=== PATIENT | male | born 1965 | race Caucasian/White ===

== ENCOUNTER 2018-10-05 16:29 | Emergency (ER) | payer OTHER, SELFPAY ==
[2018-10-05 16:29] VITALS: BP 150/82; PULSE 90; RESP 16; TEMP 37.2; O2SAT 98; BMI 35.3
--- NOTE | 2018-10-05 16:49 | RAD_ITS ---
STUDY: X-RAY - LEFT SHOULDER REASON FOR EXAM: Male, 53 years old. Pain TECHNIQUE: 2 view(s) of the shoulder. COMPARISON: 12/12/2016 FINDINGS: There is no evidence of fracture or dislocation. There are stable mild degenerative changes. There are no radiodense foreign bodies. RAD/Shoulder min 2 Views IMPRESSION: No fracture or dislocation in the left shoulder. Stable mild degenerative change. Electronically Signed: Adalberto Galaviz, at 17:14 EDT Tel , Service support ,
--- NOTE | 2018-10-05 16:53 | ED.VISSUMM ---
- ER Visit Summary Date of Service: 10/05/18 Chief Complaint: Left shoulder pain History of Present Illness: The patient is a 53 M. Prior right rotator cuff surgery. Patient had some downed trees at his home. He was working on cleaning that up today when he pulled on some of the branches and he had immediate left shoulder pain. Denies any fall. No prior left shoulder history. Denies any fever, swelling or redness. Physical Examination: Middle-aged male. Vital signs stable afebrile. No acute distress. H EENT exam unremarkable. Neck nontender. Lungs clear to auscultation. Heart regular rhythm no murmur. Abdomen soft and nontender. Obese. Patient's right upper and both lower extremities are nontender normal range of motion. Left shoulder has pain on palpation diffusely of the shoulder. Also the posterior trapezius. He has full flexion-extension left elbow and range of motion of the left wrist. Normal radial pulse. Normal 5 out of 5 vp of customer experience strategy strength. There is no gross bony deformity but he is tender to the left shoulder and he has significant decreased range of motion due to pain. He cannot lift his left arm above his shoulder but again he does not want to due to pain. Neurologically is awake and alert. Normal motor strength and sensation. Test Results: Left shoulder x-ray 2 views show chronic degenerative changes but no acute process. No fracture or dislocation. Read both by myself and radiologist. I did go the x-ray to the patient. Emergency Department Course and Treatment: Patient's history and exam are consistent with a shoulder strain. IT is a limited shoulder exam due to the amount of pain exam and cannot evaluate full range of motion at this time due to his pain. Given 2 Vicodin here for pain. Treatment Plan: [place] for pain. Ice. Follow-up with his orthopedic physician Dr. Jacinto Roman if not improving. Patient understands that due to his limited range of motion this is not improving he will need orthopedic evaluation. Disposition: Discharge Impression: Acute left shoulder strain Rule out internal derangement This note was generated with Morphy dictation software. It may contain incorrect words, spelling, and punctuation that were not noted in review of the chart prior to signing ED Disposition - Plan for ED Patient: Disposition: Home or Assisted Living Instructions: ED Sprain Shoulder Prescriptions: Hydrocodone/Acetaminophen [[place] 7.5-325 Tablet] 1 ea PO Q4H PRN PRN #14 tab PRN Reason: Pain Referrals: Adalberto Roman MD [STAFF PHYSICIAN] - As soon as possible Additional Instructions: Shoulder. Motrin and limited [place] for pain. This could be just a simple shoulder strain we injured the muscles. However the amount of pain urine and due to your limited range of motion if this is not improving you need to have it seen by orthopedics to rule out a rotator cuff injury or other internal injury is not evident today.
--- NOTE | 2018-10-05 16:56 | ED.DCSUM_ITS ---
- ER Visit Summary Date of Service: 10/05/18 Chief Complaint: Left shoulder pain History of Present Illness: The patient is a 53 M. Prior right rotator cuff surgery. Patient had some downed trees at his home. He was working on cleaning that up today when he pulled on some of the branches and he had immediate left shoulder pain. Denies any fall. No prior left shoulder history. Denies any fever, swelling or redness. Physical Examination: Middle-aged male. Vital signs stable afebrile. No acute distress. H EENT exam unremarkable. Neck nontender. Lungs clear to auscultation. Heart regular rhythm no murmur. Abdomen soft and nontender. Obese. Patient's right upper and both lower extremities are nontender normal range of motion. Left shoulder has pain on palpation diffusely of the shoulder. Also the posterior trapezius. He has full flexion-extension left elbow and range of motion of the left wrist. Normal radial pulse. Normal 5 out of 5 box nailer strength. There is no gross bony deformity but he is tender to the left shoulder and he has significant decreased range of motion due to pain. He cannot lift his left arm above his shoulder but again he does not want to due to pain. Neurologically is awake and alert. Normal motor strength and sensation. Test Results: Left shoulder x-ray 2 views show chronic degenerative changes but no acute process. No fracture or dislocation. Read both by myself and radiologist. I did go the x-ray to the patient. Emergency Department Course and Treatment: Patient's history and exam are consistent with a shoulder strain. IT is a limited shoulder exam due to the amount of pain exam and cannot evaluate full range of motion at this time due to his pain. Given 2 Vicodin here for pain. Treatment Plan: [place] for pain. Ice. Follow-up with his orthopedic physician Dr. Jacinto Roman if not improving. Patient understands that due to his limited range of motion this is not improving he will need orthopedic evaluation. Disposition: Discharge Impression: Acute left shoulder strain Rule out internal derangement This note was generated with [employer] dictation software. It may contain incorrect words, spelling, and punctuation that were not noted in review of the chart prior to signing ED Disposition - Plan for ED Patient: Disposition: Home or Assisted Living Instructions: ED Sprain Shoulder Prescriptions: Hydrocodone/Acetaminophen [[place] 7.5-325 Tablet] 1 ea PO Q4H PRN PRN #14 tab PRN Reason: Pain Referrals: Adalberto Roman MD [STAFF PHYSICIAN] - As soon as possible Additional Instructions: Shoulder. Motrin and limited [place] for pain. This could be just a simple shoulder strain we injured the muscles. However the amount of pain urine and due to your limited range of motion if this is not improving you need to have it seen by orthopedics to rule out a rotator cuff injury or other internal injury is not evident today.
--- NOTE | 2018-10-05 17:04 | DCINST.ED_ITS ---
ED Disposition - Plan for ED Patient: Disposition: Home or Assisted Living Instructions: ED Sprain Shoulder Prescriptions: Hydrocodone/Acetaminophen [[place] 7.5-325 Tablet] 1 ea PO Q4H PRN PRN #14 tab PRN Reason: Pain Referrals: Adalberto Roman MD [STAFF PHYSICIAN] - As soon as possible Additional Instructions: Shoulder. Motrin and limited [place] for pain. This could be just a simple shoulder strain we injured the muscles. However the amount of pain urine and due to your limited range of motion if this is not improving you need to have it seen by orthopedics to rule out a rotator cuff injury or other internal injury is not evident today.
[2018-10-05] MEDS: HYDROcodone Bitartrate/Apap 5/325 Tablet PO (17:07)
[2018-10-05 17:33] VITALS: PULSE 87; RESP 17; O2SAT 97
== END 2018-10-05 17:33 | disposition home or self-care (01) ==
LOC: ED 17:11
PROVIDERS: Emergency Provider Emergency Medicine; Family Provider Internal Medicine; PCP Internal Medicine
DX: S46.812A Strain of other muscles, fascia and tendons at shoulder and upper arm level, left arm, initial encounter (principal); Z72.0 Tobacco use; X50.0XXA Overexertion from strenuous movement or load, initial encounter; Y93.89 Activity, other specified; Y92.007 Garden or yard of unspecified non-institutional (private) residence as the place of occurrence of the external cause; Y99.8 Other external cause status
CPT/HCPCS: 73030; 99283

== ENCOUNTER 2018-10-10 13:39 | Emergency (ER) | payer OTHER, SELFPAY ==
[2018-10-09 17:04] VITALS: BMI 35.3
[2018-10-10 13:40] VITALS: BP 156/109; PULSE 73; RESP 18; TEMP 36.6; O2SAT 98; BMI 36.9
--- NOTE | 2018-10-10 14:22 | ED.DCSUM_ITS ---
- ER Visit Summary Date of Service: 10/10/18 Chief Complaint: Shoulder pain History of Present Illness: The patient is a 53 M patient presents with left shoulder pain. Patient has had the pain for 5 days. It started when he was cutting trees. He felt a pop in the left shoulder. He was seen in the ED. He had negative x-rays and was referred to orthopedics for outpatient follow-up. He has an appointment on October 16. Patient is out of pain medicine. His pain is unbearable. He cannot move his arm or function. Denies any other symptoms like fever or systemic symptoms. Denies chest pain or shortness of breath. Denies weakness or numbness. Physical Examination: Afebrile and vital signs unremarkable. Left shoulder diffusely tender to palpation. Pain with range of motion. No redness or warmth. Neurovascularly intact distally. Test Results: None performed Emergency Department Course and Treatment: I am concerned for rotator cuff injury or other soft tissue injury. X-rays were negative. I did not feel it was necessary to repeat them. Patient received pain medicine here, Dilaudid subcutaneous. Prescription for Percocet. Work note. Follow-up with orthopedics. Treatment Plan: As above Disposition: Discharge Impression: 1. Left shoulder pain This note was generated with [employer] dictation software. It may contain incorrect words, spelling, and punctuation that were not noted in review of the chart prior to signing ED Disposition - Plan for ED Patient: Referrals: Josh Leach MD [Primary Care Provider] -
--- NOTE | 2018-10-10 14:24 | ED.DEP ---
ED Disposition - Plan for ED Patient: Instructions: Shoulder Sprain, Rotator Cuff Tear Prescriptions: Oxycodone HCl/Acetaminophen [Percocet 5/325] 1 tab PO Q6H PRN PRN 3 Days #12 tab PRN Reason: Pain Prescription Printed Referrals: Adalberto Roman MD [STAFF PHYSICIAN] -
[2018-10-10] MEDS: HYDROmorphone 1 MG/ML Syringe SC (14:35)
[2018-10-10 15:05] VITALS: BP 139/84; PULSE 76; RESP 18; O2SAT 97
--- NOTE | 2018-10-10 15:07 | ED.RN ---
THIS NURSE REVIEWED D/C INSTRUCTIONS WITH PT. PT VERBALIZED UNDERSTANDING OF INSTRUCTIONS. PT DENIES FURTHER NEEDS OR QUESTIONS AT THIS TIME. PT AMBULATES FROM ROOM ON OWN WITHOUT ASSISTANCE FROM STAFF
== END 2018-10-10 15:08 | disposition home or self-care (01) ==
LOC: ED 14:23
PROVIDERS: Emergency Provider Emergency Medicine; Family Provider Internal Medicine; PCP Internal Medicine
DX: M25.512 Pain in left shoulder (principal)
CPT/HCPCS: 96372; 99282

== ENCOUNTER → 2018-11-27 08:08 | Outpatient (CLI) | payer OTHER, SELFPAY ==
[2018-10-30 17:10] VITALS: BMI 37.8
[2018-11-27 12:22] LABS: Absolute Lymphocyte Count 2.54 X10^3/uL (0.83-4.51); Absolute Neutrophil Count 6.5 X10^3/uL (2.0-7.7); Basophil# 0.06 X10^3/uL; Basophil% 0.6 % (0-1); Eosinophil# 0.25 X10^3/uL; Eosinophils% 2.5 % (0-5); Hematocrit 47.7 % (40-54); Hemoglobin 15.4 g/dL (13.0-16.5); Lymphocyte # 2.54 X10^3/ul (4.0); Lymphocyte % 25.2 % (19-41); Mean Corp Hgb Conc 32.3 g/dL (32-36); Mean Corpuscular Hgb 32.7 pg (27.0-32.0); Mean Corpuscular Volume 101.3 fL (80-94); Mean Platelet Vol. 9.6 fl (6.2-12.0); Monocyte# 0.75 X10^3/uL; Monocyte% 7.4 % (0-10); NRBC Flagged by Analyzer 0 % (0-5); Neutrophil # 6.46 X10^3/uL (2.7-7.7); Neutrophil % 64.1 % (47-70); Platelet Count 262 K/mm3 (150-450); RBC Distribution Width SD 48.4 fl (35.1-43.9); Red Blood Count 4.71 M/mm3 (4.6-6.2); White Blood Count 10.1 K/mm3 (4.4-11.0)
[2018-11-27 12:53] LABS: ALB/GLOB Ratio 0.9 RATIO (0.9-2.4); AST(SGOT) 17 U/L (15-37); Alanine Aminotransfer ALT/SGPT 27 U/L (16-61); Albumin, Serum 3.7 g/dL (3.2-5.0); Alkaline Phosphatase 80 U/L (45-117); Anion Gap 5 (5-15); BUN 19 mg/dL (7-18); Chloride 107 mmol/L (98-107); Cholesterol 230 mg/dL (200); Creatinine, Serum 1.12 mg/dL (0.70-1.30); EST Glomerular Filtration Rate 72 mL/min (>60); Est Glom Filt Rate - Afr Amer 87 mL/min (>60); Globulin 3.9 g/dL (2.2-4.2); Glucose 109 mg/dL (74-106); High Density Lipoprotein 41 mg/dL; Potassium 4.5 mmol/L (3.5-5.1); Protein, Total 7.6 g/dL (6.4-8.2); Sodium Level 139 mmol/L (136-145); Triglycerides 114 mg/dL; Very Low Density Lipoprotein 23 mg/dL (5-40)
== END ==
PROVIDERS: Family Provider Internal Medicine; PCP Family Medicine; Visit Provider Internal Medicine
DX: I10 Essential (primary) hypertension (principal)
CPT/HCPCS: 36415; 80053; 80061; 85025

== ENCOUNTER → 2019-01-16 | Outpatient (CLI) | payer OTHER, SELFPAY ==
[2018-10-30 17:10] VITALS: BMI 37.8
--- NOTE | 2019-01-16 14:32 | RAD_ITS ---
STUDY: X-RAY CHEST REASON FOR EXAM: Male, 53 years old. Pre-op for hip surgery TECHNIQUE: PA and lateral views of the chest. COMPARISON: None. FINDINGS: Lungs are expanded. Left lung is clear. There is blunting of the right costophrenic angle suggesting right pleural effusion. Normal size heart. Normal mediastinum and lizandro. Normal visualized pulmonary arteries. Normal visualized aortic arch and descending thoracic aorta. Normal visualized thoracic spine. Normal visualized ribs, clavicles, and shoulders. There is no demonstrated abnormality of the visualized soft tissue structures of the upper abdomen. RAD/Chest PA and Lateral IMPRESSION: Right pleural effusion, no superimposed infiltrate. Electronically Signed: Maykel Newman MD at 15:18 EDT , Service support ,
--- NOTE | 2019-01-16 14:33 | EKG12_ITS ---
Test Reason : PRE OP Blood Pressure : / mmHG Vent. Rate : 068 BPM Atrial Rate : 068 BPM P-R Int : 210 ms QRS Dur : 090 ms QT Int : 370 ms P-R-T Axes : 046 014 038 degrees QTc Int : 393 ms Sinus rhythm with sinus arrhythmia with 1st degree A-V block Otherwise normal ECG Confirmed by ASH ARRIAZA, SERGIO ([id number]), non linear editor JANKI SANTIAGO ([id number]) on 01/19/2019 3:17:40 PM Referred By: Wilmer Nina Confirmed By:SERGIO ALEMAN MD
[2019-01-16 15:23] LABS: Hematocrit 46.2 % (40-54); Mean Corp Hgb Conc 32.5 g/dL (32-36); Mean Corpuscular Volume 98.5 fL (80-94); Mean Platelet Vol. 9.4 fl (6.2-12.0); Platelet Count 248 K/mm3 (150-450); RBC Distribution Width CV 12.6 % (11.6-14.6); RBC Distribution Width SD 45.2 fl (35.1-43.9); Red Blood Count 4.69 M/mm3 (4.6-6.2); White Blood Count 8.2 K/mm3 (4.4-11.0)
[2019-01-16 15:55] LABS: Anion Gap 5 (5-15); BUN 15 mg/dL (7-18); BUN/Creat Ratio 12.3 RATIO (10-20); Calcium,Total 9.4 mg/dL (8.5-10.1); Chloride 105 mmol/L (98-107); Creatinine, Serum 1.22 mg/dL (0.70-1.30); EST Glomerular Filtration Rate 65 mL/min (>60); Est Glom Filt Rate - Afr Amer 79 mL/min (>60); Glucose 103 mg/dL (74-106); Potassium 3.8 mmol/L (3.5-5.1); Sodium Level 140 mmol/L (136-145)
== END | disposition home or self-care (01) ==
PROVIDERS: Family Provider Internal Medicine; PCP Internal Medicine; Referring Provider Physician Assistant; Visit Provider Physician Assistant
DX: Z01.818 Encounter for other preprocedural examination (principal); F17.200 Nicotine dependence, unspecified, uncomplicated
CPT/HCPCS: 36415; 71046; 80048; 85027; 93005

== ENCOUNTER → 2019-03-03 | Outpatient (CLI) | payer OTHER, SELFPAY ==
[2019-02-10 14:54] VITALS: BMI 38.7
[2019-03-03 13:24] VITALS: BMI 38.7
--- NOTE | 2019-03-03 14:00 | CT_ITS ---
STUDY: LOW DOSE CT LUNG CANCER SCREENING REASON FOR EXAM: Male, 53 years old. The patient smoked half a pack per day for 45+ years. RADIATION DOSAGE (If Supplied By Facility): CTDIvol = ( 4.02 ) mGy, DLP = ( 149.49 ) mGycm TECHNIQUE: No contrast was administered. Low dose technique was utilized (average mAS-38 and kVp 120). 1.25 mm axial source images with a slice interval of 1.25-mm were reconstructed in lung windows. 2.5 mm axial source images with a slice interval of 2.5-mm were reconstructed in lung windows. 5.0 mm axial source images with a slice interval of 5.0-mm were reconstructed in soft tissue windows. Nodule measured using lung windows on PACS and/or independent workstation with automated measurement of minimum and maximum diameter. Nodule measurement reported as average diameter rounded to the nearest whole number. Growth is defined as an increase ins size of greater than 1.5 mm. COMPARISON: None. NODULES: No suspicious nodules are seen. Emphysema: Mild linear scarring in the anterior aspect of the right lower lobe. Aorta: Atherosclerotic calcification of the aortic arch. Coronary arteries: Coronary artery calcification. Heart: Unremarkable Pulmonary artery: Not enlarged Mediastinal nodes: Tiny lymph nodes are seen. Other chest and abdominal findings: Mild degenerative changes of the thoracic vertebrae. CT/Low Dose CT Lung Screening IMPRESSION: Lung-RADS category 2 - Continue annual screening with LDCT in 12 months. IMPORTANT NOTES FOR USE: ACR Lung-RADS Version 1.0 Assessment Categories Release Date: August 17, 2013 Category: Coded 0-4 bases on nodule(s) with highest degree of suspicion. Negative screen is defined as categories 1 and 2; a positive screen is defined as categories 3 and 4. Category 3 and 4A nodules that are unchanged on interval CT should be coded as category 2, and individuals returned to screening in 12 months. Category 4X: Category 3 or 4 nodules with additional imaging findings that increase the suspicion of lung cancer, such as spiculation, GGN that doubles in size in 1 year, enlarged lymph notes, etc. Category Modifiers: S (significant finding unrelated to lung cancer) and C (prior history of treated lung cancer) may be added to the 0-4 Lung-RADS Electronically Signed: Jaiden Fall, at 14:58 EST , Service support ,
== END | disposition home or self-care (01) ==
LOC: CT 13:59
PROVIDERS: Family Provider Internal Medicine; PCP Internal Medicine; Referring Provider Nurse Practitioner Family; Visit Provider Nurse Practitioner Family
DX: Z12.2 Encounter for screening for malignant neoplasm of respiratory organs (principal); F17.209 Nicotine dependence, unspecified, with unspecified nicotine-induced disorders
CPT/HCPCS: G0297

== ENCOUNTER 2019-03-13 07:40 | Day surgery (SDC) | payer OTHER, SELFPAY ==
[2019-02-10 14:54] VITALS: BMI 38.7
[2019-03-03 13:24] VITALS: BMI 38.7
[2019-03-13 08:17] VITALS: BP 131/84; PULSE 70; RESP 16; TEMP 36.7; O2SAT 100; BMI 38.7
[2019-03-13] MEDS: Lactated Ringers 1,000 ML 100 ML IV (08:30)
--- NOTE | 2019-03-13 09:06 | H&P.OPEN ---
History of Present Illness Date of Admission: 03/13/19 The patient is a 54 year old M here for screening colonoscopy. The patient reports he has no blood in the stool or abdominal pain. Patient does not know his family history. He is never had a colonoscopy in the past. He is not on blood thinners. Past Medical/Surgical History - Planned Operation Planned Operative Procedure/s: colonoscopy Date of Operative Procedure: 03/13/19 Permit Signed: No S.O.S: No Is This Patient Having a Total Joint: No - Previous Hospitalizations/Surgeries HX Hospitalizations: No HX of Surgeries: shoulder arthroscopy 2008 rt. left shoulder rotator cuff repair/ arthroscopy 01/23/19[facility]. rt knee meniscius repair 2017. umbilical hernia repair Any Problems With Anesthesia: No You/Your Family Experience Fever (Hyperthermia) With Anes: No - family hx unknown. no prev problems Cholinesterase deficiency: No - Cardiovascular Hx Chest Pain within Last 2 months: No Hx of Irregular Heartbeat and/or Afib: No Hx Heart Attack: No Hx Congestive Heart Failure: No Hx Rheumatic Fever: No Hx Hypertension: No Hx Internal Defibrillator: No Hx Pacemaker: No Hx Cardiac Catheterization: No Hx Cardiac Surgery/Stents/Etc.: No Hx Stress Test: No HX Edema: No Hx Pain in Legs when Walking/Leg Cramps: No - Respiratory Chronic Cough: No HX of Shortness of Breath: No - denies Hoarseness: No Hx Chronic Obstructive Pulmonary Disease (COPD): No Hx Asthma: No Hx Emphysema: No Hx Sleep Apnea: No Hx Oxygen Use at Home: No Hx Respiratory Tract Infection/Cold (presently): No Do You Snore Loudly (louder than talking or can be heard): Yes Do You Often Feel Tired/ Fatigued/ Sleepy [place]ring Daytime?: No Has Anyone Observed You Stop Breathing During Sleep?: No Result (for STOP score): Negative Hx Smoking: Yes - 1/2 PPD x 27 yrs Smoking Status: Current every day smoker - Gastrointestinal Hx Gastroesophageal Reflux: No Hx Gastrointestinal Disorders: No Hx Gastrointestinal Bleed: No Hx Ulcer: No Hx Hiatal Hernia: No Difficulty Chewing/Swallowing: No Recent Onset of Swallowing Problems: No Special diet followed at home: No Hx Unplanned Weight Loss of 20#: No HX Unplanned Weight Gain of 20#: No - Neurological Hx Seizures: No HX Syncope/Blackout Spells/Unconsciousness: No Hx CVA/Stroke: No Hx Transient Ischemic Attacks (TIA): No Hx Multiple Sclerosis: No Hx Parkinson's Disease: No Hx Head/Neck Injury: No Hx Headaches: No Hx Back Injury/Pain: No Recent Onset of Speech Difficulty: No Restless Legs: No Does patient have nerve stimulator: No Patient instructed to have device shut off: No Rep notified?: No - Blood Disorder Hx Leukemia: No Bleeding Tendencies: No Hx Deep Vein Thrombosis: No Hx High Cholesterol: No Blood Transmitted Disease: No Hx Hepatitis: No Hx Cirrhosis: No Hx Anemia: No Hx Blood Disorders: No - Genitourinary Hx Renal Disease: No - Musculoskeletal Hx Arthritis: Yes Hx Rheumatoid Arthritis: No Hx Gout: No Recent Onset of an Orthopedic Problem: Yes - 01/2019 left shoulder surgery - Endocrine Hx Diabetes: No Thyroid Disease: No Hx Steroid Therapy: No - Psycho/Social Hx Substance Use: No Hx Alcohol Use: No Hx Anxiety: No Hx Depression: No Mental Illness: No Hx Dementia: No - Miscellaneous Hx Cancer: No Recent Exposure to Contagious Disease: No Active MRSA: No Hx of C-Diff: No Any Loose Teeth: No Additional information pertinent to anesthesia:: phone interview with , pt permission Allergies No Known Allergies Allergy (Verified 03/13/19 08:13) - Discharge Is Pt Admitted From a Snf, or a Intermediate: No Who Could Help: After D/C, Where Do you Plan to Go: Return Home - Physical Exam Vitals/I&O's: Vital Signs Temp Pulse Resp BP Pulse Ox 98.1 F 70 16 131/84 H 100 03/13/19 08:17 03/13/19 08:17 03/13/19 08:17 03/13/19 08:17 03/13/19 08:17 Oxygen Delivery Method Room Air Weight: 302 lb 4.06 oz Body Mass Index (BMI) 38.7 General: Alert, Oriented x3 Lungs: Normal air movement Cardiovascular: Regular rate, Regular Rhythm Abdomen: Soft, Non Tender, Non-Distended Current Medications Lactated Ringer's () 1,000 mls @ 100 mls/hr IV .Q10H K[place]ER[place] Last Admin: 03/13/19 08:30 Dose: 100 mls/hr Documented by: Assessment/Plan All Active Problems (Last Updated 03/03/19 @ 13:20 by Jennifer Felder Left shoulder pain (Acute) Left shoulder strain (Acute) 54-year-old male screening colon cancer I explained endoscopy in detail to the patient. I explained the risks including but not limited to stroke or heart attack with anesthesia, perforation of the GI tract, bleeding, infection. I explained that any of these could necessitate further emergency surgery. The patient understands and all questions were answered sufficiently. The patient wishes to proceed with procedure. Mark Carroll MD Pager: [facility] [address] [place] [address] [address] [place] [address] Office: Surgery Risks - Colonoscopy Risks Include but are not Limited To: Risks include but are not limited to: Bleeding, perforation requiring further surgery, inability to complete colonoscopy requiring barium enema.
--- NOTE | 2019-03-13 09:31 | OP.COLON_ITS ---
Patient Name: Wilver Smith Procedure Date: 03/13/2019 9:15 AM Date of : 1965 Age: 54 Procedure: Colonoscopy Indications: Screening for colorectal malignant neoplasm Providers: Mark Carroll MD Referring MD: Josh Leach MD Medicines: Monitored Anesthesia Care Patient Profile: This is a 54 year old male. Refer to note in patient chart for documentation of history and physical. Last Colonoscopy: none. The patient's first colonoscopy is today. Complications: No immediate complications. Procedure: Pre-Anesthesia Assessment: - Prior to the procedure, a History and Physical was performed, and patient medications and allergies were reviewed. The patient's tolerance of previous anesthesia was also reviewed. The risks and benefits of the procedure and the sedation options and risks were discussed with the patient. All questions were answered, and informed consent was obtained. Prior Anticoagulants: The patient has taken no previous anticoagulant or antiplatelet agents. After reviewing the risks and benefits, the patient was deemed in satisfactory condition to undergo the procedure. After I obtained informed consent, the scope was passed under direct vision. Throughout the procedure, the patient's blood pressure, pulse, and oxygen saturations were monitored continuously. The colonoscope was introduced through the anus and advanced to the cecum, identified by appendiceal orifice and ileocecal valve. The colonoscopy was performed without difficulty. The patient tolerated the procedure well. The quality of the bowel preparation was good. Scope In: 9:18:17 AM Scope Withdrawal Time 0 hours 6 minutes 33 seconds Scope Out: 9:27:44 AM Total Procedure Duration Time 0 hours 9 minutes 27 seconds Findings: The entire examined colon appeared normal on direct and retroflexion views. Impression: - The entire examined colon is normal on direct and retroflexion views. - No specimens collected. Recommendation: - Discharge patient to home. - Resume previous diet. - Continue present medications. - Repeat colonoscopy in 10 years for screening purposes. Procedure Code(s): --- Professional --- 29182, Colonoscopy, flexible; diagnostic, including collection of specimen(s) by brushing or washing, when performed (separate procedure) Diagnosis Code(s): --- Professional --- Z12.11, Encounter for screening for malignant neoplasm of colon CPT copyright 2017 [employer]. All rights reserved. The codes documented in this report are preliminary and upon handle lathe operator review may be revised to meet current compliance requirements. Mark Carroll MD 03/13/2019 9:31:15 AM This report has been signed electronically. Number of Addenda: 0 Note Initiated On: 03/13/2019 9:15 AM
[2019-03-13 09:35] VITALS: BP 115/57; BP 131/84; PULSE 95; RESP 16; TEMP 36.8; O2SAT 100
[2019-03-13 09:40] VITALS: BP 116/81; BP 131/84; PULSE 80; RESP 16; O2SAT 100
[2019-03-13 09:44] VITALS: BP 112/86; BP 131/84; PULSE 73; RESP 16; O2SAT 99
[2019-03-13 09:45] VITALS: BP 108/91; BP 131/84; PULSE 88; RESP 16; TEMP 36.6; O2SAT 100
[2019-03-13 10:16] VITALS: BP 131/84
== END 2019-03-13 10:17 | disposition home or self-care (01) ==
LOC: EN 07:40 → AC 07:42
PROVIDERS: Family Provider Internal Medicine; PCP Internal Medicine; Referring Provider Internal Medicine; Visit Provider Surgery
PROC: 0DJD8ZZ Inspection of Lower Intestinal Tract, Via Natural or Artificial Opening Endoscopic (ICD-10-PCS; CPT 45378; principal; 2019-03-13 08:55)
DX: Z12.11 Encounter for screening for malignant neoplasm of colon (principal); M19.90 Unspecified osteoarthritis, unspecified site; F17.200 Nicotine dependence, unspecified, uncomplicated
CPT/HCPCS: 45378; J7120; J2405

== ENCOUNTER → 2019-09-15 15:00 | Outpatient (CLI) | payer OTHER, SELFPAY ==
[2019-09-15 16:38] VITALS: BMI 38.7
[2019-09-15 18:53] LABS: Absolute Lymphocyte Count 1.83 X10^3/uL (0.83-4.51); Absolute Neutrophil Count 4.7 X10^3/uL (2.0-7.7); Basophil# 0.04 X10^3/uL; Basophil% 0.5 % (0-1); Eosinophils% 2.7 % (0-5); Hematocrit 46.6 % (40-54); Hemoglobin 14.9 g/dL (13.0-16.5); Lymphocyte # 1.83 X10^3/ul (4.0); Lymphocyte % 24.4 % (19-41); Mean Corpuscular Volume 100.2 fL (80-94); Mean Platelet Vol. 9.5 fl (6.2-12.0); Monocyte# 0.69 X10^3/uL; Monocyte% 9.2 % (0-10); NRBC Flagged by Analyzer 0 % (0-5); Neutrophil # 4.73 X10^3/uL (2.7-7.7); Neutrophil % 62.9 % (47-70); Platelet Count 293 K/mm3 (150-450); RBC Distribution Width SD 47.8 fl (35.1-43.9); Red Blood Count 4.65 M/mm3 (4.6-6.2); White Blood Count 7.5 K/mm3 (4.4-11.0)
[2019-09-16 10:49] LABS: ALB/GLOB Ratio 0.9 RATIO (0.9-2.4); AST(SGOT) 25 U/L (15-37); Alanine Aminotransfer ALT/SGPT 35 U/L (16-61); Albumin, Serum 3.8 g/dL (3.2-5.0); Alkaline Phosphatase 83 U/L (45-117); Anion Gap 5 (5-15); BUN 16 mg/dL (7-18); BUN/Creat Ratio 13.6 RATIO (10-20); Calcium,Total 9.5 mg/dL (8.5-10.1); Chloride 107 mmol/L (98-107); Cholesterol 240 mg/dL (200); Creatinine, Serum 1.18 mg/dL (0.70-1.30); EST Glomerular Filtration Rate 68 mL/min (>60); Est Glom Filt Rate - Afr Amer 82 mL/min (>60); Globulin 4.1 g/dL (2.2-4.2); Glucose 94 mg/dL (74-106); High Density Lipoprotein 37 mg/dL; Potassium 4.2 mmol/L (3.5-5.1); Protein, Total 7.9 g/dL (6.4-8.2); Sodium Level 139 mmol/L (136-145); Triglycerides 227 mg/dL; Very Low Density Lipoprotein 45 mg/dL (5-40)
--- OUTSIDE RECORDS SUMMARY | 2020-02-02 17:33 | XMS RPT_ITS | CCD ---
:1965 External Reference #:[id number] Author Organization [facility] Care Team Providers Name Role Phone ALBERTO, A. Unavailable Unavailable WAYT Unavailable Unavailable ALBERTO, A. Unavailable Unavailable WAYT Unavailable Unavailable Lyren-Barney, E Unavailable Unavailable PHYSICIAN Unavailable Unavailable Results Result Name Value Range Unit Interpretation Flag Date Location ua on 2017-08-08 UA Appear CLEAR Normal 08-08-2017 [facility]) ([id number]) Comment: Performed By: #### CBC, ADIF F, ANEU, GFR, CMP ####[address] [place], [place] [address] UA Blood NEGATIVE Normal 08-08-2017 [facility]) ([id number]) Comment: Performed By: #### CBC, ADIF F, ANEU, GFR, CMP ####[address] [place], [place] [address] UA Leuk Est NEGATIVE Normal 08-08-2017 [facility]) ([id number]) Comment: Performed By: #### CBC, ADIF F, ANEU, GFR, CMP ####[address] [place], [place] [address] UA Nitrite NEGATIVE Normal 08-08-2017 [facility] ([place] ([id number]) Comment: Performed By: #### CBC, ADIF F, ANEU, GFR, CMP ####[address] [place], [place] [address] UA pH 6.0 Normal 08-08-2017 [facility] ([place]) ([id number]) Comment: Performed By: #### CBC, ADIF F, ANEU, GFR, CMP ####[address] [place], [place] [address] UA Protein NEGATIVE Normal 08-08-2017 [facility]) ([id number]) Comment: Performed By: #### CBC, ADIF F, ANEU, GFR, CMP ####[address] [place], [place] [address] UA Spec Grav 1.025 Normal 08-08-2017 [facility]) ([id number]) Comment: Performed By: #### CBC, ADIF F, ANEU, GFR, CMP ####[address] [place], [place] [address] UA Specimen Type Clean Catch Normal 08-08-2017 [facility] ([place]) ([id number]) Comment: Performed By: #### CBC, ADIF F, ANEU, GFR, CMP ####[address] [place], [place] [address] UA Urobilinogen 0.2 E.U./dL Normal 08-08-2017 [facility]) ([id number]) Comment: Performed By: #### CBC, ADIF F, ANEU, GFR, CMP ####[address] [place], [place] [address] Urine, color YELLOW Normal 08-08-2017 [facility]) ([id number]) Comment: Performed By: #### CBC, ADIF F, ANEU, GFR, CMP ####[address] [place], [place] [address] Urine, glucose NEGATIVE mg/dL Normal 08-08-2017 [facility] ([place]) ([id number]) Comment: Performed By: #### CBC, ADIF F, ANEU, GFR, CMP ####[address] [place], [place] [address] Urine, ketones presence NEGATIVE Normal 2017 [facility]) ([id number]) Comment: Performed By: #### CBC, ADIF F, ANEU, GFR, CMP ####[address] [place], [place] [address] Urine, urobilinogen NEGATIVE {Nilda'U}/dL Normal 08-08 [facility]) ([id number]) Comment: Performed By: #### CBC, ADIF F, ANEU, GFR, CMP ####[address] [place], [place] [address] patient summary documents on 2017-08-08 Patient Summary Documents Normal 07-21 [facility] ([place]) ([id number]) pat edu on Pat Edu Normal 08-08-2017 [facility]) ([id number]) [place] emergency [facility] note on 2017-08-08 [facility] Note Normal 0 08-08-2017 [facility] ([place]) ([id number]) [place] [facility] Note Normal 0 08-08-2017 [facility]) ([id number]) .urinalysis microscopic (ao) on 2017-08-08 UA Squam Epithelial None Seen None Seen Normal 08-08-2017 [facility] ([place]) (0000 0) Comment: Performed By: #### CBC, ADIF F, ANEU, GFR, CMP ####[address] [place], [place] [address] UA WBC None Seen None Seen Normal 08-08-2017 [facility]) ([id number]) Comment: Performed By: #### CBC, ADIF F, ANEU, GFR, CMP ####[address] [place], [place] [address] Urine, erythrocytes None Seen None Seen Normal 08-08-2017 [facility] ([place]) (0000 0) Comment: Performed By: #### CBC, ADIF F, ANEU, GFR, CMP ####[address] [place], [place] [address] outpatient patient summary on 2017-01-08 Outpatient Patient Summary Normal [facility] ([place]) ([id number]) [place] operative report on 2017-01-08 [place] Operative Report Normal 12-21 [facility] ([place] ([id number]) depart summary on Depart Summary Normal 01-08-2017 [facility]) ([id number]) [facility] main or intraop record on 2017-01-08 [facility] MAIN OR Intraop Record Normal [facility] ([place]) ([id number]) anesthesiology consultation on 2017-01-08 Anesthesiology Consultation Normal [facility] ([place]) ([id number]) [place] pre-surgical history and physic al on 2017-01-01 [place] Pre-Surgical History Normal 01-01-2017 [facility] AND Physical ([place]) (0 0000) cmp on 2017-01-01 Alanine aminotransferase (ALT) 18 10-35 IU/L Normal 01-01-2017 [facility] ([place]) ([id number]) Comment: Performed By: #### CBC, ADIF F, ANEU, GFR, CMP ####[address] [place], [place] [address] Alk Phos 81 40-135 IU/L Normal 01-01-2017 [facility] ([place]) ([id number]) Comment: Performed By: #### CBC, ADIF F, ANEU, GFR, CMP ####[address] [place] [address] Aspartate aminotransferase 18 10-40 IU/L Normal [facility] ([id number]) Comment: Performed By: #### CBC, ADIF F, ANEU, GFR, CMP ####[address] [place], [place] [address] Albumin 4.1 3.5-5.0 G/dL Normal 01-01-2017 [facility]) ([id number]) Comment: Performed By: #### CBC, ADIF F, ANEU, GFR, CMP ####[address] [place], [place] [address] Albumin/Globulin Ratio 1.5 1.1-2.5 ratio Normal 017 [facility] ([place]) (0000 0) Comment: Performed By: #### CBC, ADIF F, ANEU, GFR, CMP ####[address] [place], [place] [address] Bili Total 0.2 0.2-1.0 mg/dL Normal 01-01-2017 [facility] ([place]) ([id number]) Comment: Performed By: #### CBC, ADIF F, ANEU, GFR, CMP ####[address] [place], [place] [address] BUN/Creatinine Ratio 17 7-27 ratio Normal 7 [facility] ([place]) ([id number]) Comment: Performed By: #### CBC, ADIF F, ANEU, GFR, CMP ####[address] [place], [place] [address] Calcium 9.5 8.4-10.2 mg/dL Normal 01-01-2017 [facility] ([place]) ([id number]) Comment: Performed By: #### CBC, ADIF F, ANEU, GFR, CMP ####[address] [place], [place] [address] Chloride 104 98-107 mEq/L Normal 01-01-2017 [facility] ([place]) ([id number]) Comment: Performed By: #### CBC, ADIF F, ANEU, GFR, CMP ####[address] [place], [place] [address] CO2 24 22-29 mEq/L Normal 01-01-2017 [facility] ([place]) ([id number]) Comment: Performed By: #### CBC, ADIF F, ANEU, GFR, CMP ####[address] [place], [place] [address] Creatinine 1.0 0.6-1.2 mg/dL Normal 01-01-2017 [facility] ([place]) ([id number]) Comment: Performed By: #### CBC, ADIF F, ANEU, GFR, CMP ####[address] [place], [place] [address] Electrolyte Balance 9.0 mEq/L Normal 01-01-2017 [facility] ([place]) (51213) Comment: Performed By: #### CBC, ADIF F, ANEU, GFR, CMP ####[address] [place], [place] [address] Globulin 2.8 G/dL Normal 01-01-2017 [facility] ([place]) ([id number]) Comment: Performed By: #### CBC, ADIF F, ANEU, GFR, CMP ####[address] [place], [place] [address] Glucose mass conc 102 70-105 mg/dL Normal 01-01-2017 [facility] ([place]) ([id number]) Comment: Performed By: #### CBC, ADIF F, ANEU, GFR, CMP ####[address] [place], [place] [address] Potassium molar conc 4.4 3.5-5.1 mEq/L Normal 7 [facility] ([place]) (0000 0) Comment: Performed By: #### CBC, ADIF F, ANEU, GFR, CMP ####[address] [place], [place] [address] Protein 6.9 6.0-8.3 G/dL Normal 01-01-2017 [facility] ([place]) ([id number]) Comment: Performed By: #### CBC, ADIF F, ANEU, GFR, CMP ####[address] [place], [place] [address] Sodium 137 136-146 mEq/L Normal 01-01-2017 [facility] ([place]) ([id number]) Comment: Performed By: #### CBC, ADIF F, ANEU, GFR, CMP ####[address] [place], [place] [address] Urea nitrogen 17.4 7.0-18.0 mg/dL Normal 01-01-2017 [facility] ([place]) ([id number]) Comment: Performed By: #### CBC, ADIF F, ANEU, GFR, CMP ####[address] [place], [place] [address] cbc on 2017-01-01 Erythrocyte distribution 13.6 11.5-14.5 % Normal 01-01 [facility] width Auto Ratio (RBC) [facility] ([place]) ([id number]) Comment: Performed By: #### CBC, ADIF F, ANEU, GFR, CMP ####[address] [place], [place] [address] Erythrocytes (RBC) 4.48 4.04-6.13 10 6/mcL Normal 01-01-2017 [facility] ([place]) ([id number]) Comment: Performed By: #### CBC, ADIF F, ANEU, GFR, CMP ####[address] [place], [place] [address] Hematocrit (HCT) 42.2 42.0-52.0 % Normal 01-01-2017 [facility] ([place]) ([id number]) Comment: Performed By: #### CBC, ADIF F, ANEU, GFR, CMP ####[address] [place], [place] [address] Hemoglobin mass conc 14.2 14.0-18.0 G/dL Normal [address] [place] [address] ([facility] ([place]) ([id number]) Comment: Performed By: #### CBC, ADIF F, ANEU, GFR, CMP ####[address] [place], [place] [address] MCH 31.8 27.0-31.2 pg High 01-01-2017 [facility] ([place]) ([id number]) Comment: Performed By: #### CBC, ADIF F, ANEU, GFR, CMP ####[address] [place], [place] [address] MCHC mass conc (RBC) 33.7 31.8-35.4 G/dL Normal 7 [facility] ([place]) (0000 0) Comment: Performed By: #### CBC, ADIF F, ANEU, GFR, CMP ####[address] [place], [place] [address] MCV 94.2 80.0-94.0 fL High 01-01-2017 [facility] ([place]) ([id number]) Comment: Performed By: #### CBC, ADIF F, ANEU, GFR, CMP ####[address] [place], [place] [address] Platelet mean volume 7.7 7.4-10.4 fL Normal 7 [facility] ([place]) ([place]) (0000 0) Comment: Performed By: #### CBC, ADIF F, ANEU, GFR, CMP ####[address] [place], [place] [address] Platelets 188 130-400 10 3/mcL Normal 01-01-2017 [facility] ([place]) ([id number]) Comment: Performed By: #### CBC, ADIF F, ANEU, GFR, CMP ####[address] [place], [place] [address] WBC (Leukocytes) 6.50 4.60-10.80 10 3/mcL Normal 01-01-2017 [facility] ([place]) (0000 0) Comment: Performed By: #### CBC, ADIF F, ANEU, GFR, CMP ####[address] [place], [place] [address] .neuabs on Neutrophils 3.60 2.85-6.16 10 3/mcL Normal 01-01-2017 [facility] ([place]) ([id number]) Comment: Performed By: #### CBC, ADIF F, ANEU, GFR, CMP ####[address] [place], [place] [address] .gfr on 2017-01-01 eGFR (non-black) >60 mL/min/{1.73_m2} Normal 2016 [facility] ([place]) (0000 0) Comment: Result Comment: GFR Populati on mean for , Non- Americans Ages 20-29 = 116 m L/min/1.73 sq.m. Ages 30-39 = 107 mL/min/1.73 sq.m. Ages 40-49 = 99 mL/min /1.73 sq.m. Ages 50-59 = 93 mL/min/1.73 sq.m. Ages 60-69 = 85 mL/min/1.73 sq.m. Ages 70+ = 75 mL/min/1.73 sq.m.Chronic Kidney Disease: Less than 60 mL/min/1.73 square metersEnd Stage Renal Disease: Less than 15 mL/min /1.73 square meters Performed By: #### CBC, ADIF F, ANEU, GFR, CMP ####[address] [place], [place] [address] eGFR (non-black) 92 ml/min/1.73sqm Normal 01-02-20 17 [facility] ([place]) ([id number]) Comment: Result Comment: GFR Populati on mean for , Non- Americans Ages 20-29 = 116 m L/min/1.73 sq.m. Ages 30-39 = 107 mL/min/1.73 sq.m. Ages 40-49 = 99 mL/min /1.73 sq.m. Ages 50-59 = 93 mL/min/1.73 sq.m. Ages 60-69 = 85 mL/min/1.73 sq.m. Ages 70+ = 75 mL/min/1.73 sq.m.Chronic Kidney Disease: Less than 60 mL/min/1.73 square metersEnd Stage Renal Disease: Less than 15 mL/min /1.73 square meters Performed By: #### CBC, ADIF F, ANEU, GFR, CMP ####[address] [place], [place] [address] .auto diff on 01-01 Basophils Auto #/vol 0.00 0.00-0.19 10 3/mcL Normal 7 [facility] ([facility]) [facility] ([place]) ([id number]) Comment: Performed By: #### CBC, ADIF F, ANEU, GFR, CMP ####[address] [place], [place] [address] Basophils/100 WBC Auto (d) 0.7 0.0-2.5 % Normal 0 01-01-2017 [facility] ([place]) (0000 0) Comment: Performed By: #### CBC, ADIF F, ANEU, GFR, CMP ####[address] [place], [place] [address] Eosinophils 0.20 0.00-0.40 10 3/mcL Normal 01-01-2017 [facility] ([place]) ([id number]) Comment: Performed By: #### CBC, ADIF F, ANEU, GFR, CMP ####[address] [place], [place] [address] Eosinophils/100 leukocytes 2.8 0.0-7.0 % Normal [facility] ([place]) (0000 0) Comment: Performed By: #### CBC, ADIF F, ANEU, GFR, CMP ####[address] [place], [place] [address] Lymphocytes 2.10 0.77-3.85 10 3/mcL Normal 01-01-2017 [facility] ([place]) ([id number]) Comment: Performed By: #### CBC, ADIF F, ANEU, GFR, CMP ####[address] [place], [place] [address] Lymphocytes/100 leukocytes 32.8 10.0-50.0 % Normal [facility] ([place]) ([id number]) Comment: Performed By: #### CBC, ADIF F, ANEU, GFR, CMP ####[address] [place], [place] [address] Monocytes 0.60 0.15-1.00 10 3/mcL Normal 01-01-2017 [facility] ([place]) ([id number]) Comment: Performed By: #### CBC, ADIF F, ANEU, GFR, CMP ####[address] [place], [place] [address] Monocytes/100 leukocytes 8.7 1.7-13.0 % Normal 01-01 [facility] ([place]) (0000 0) Comment: Performed By: #### CBC, ADIF F, ANEU, GFR, CMP ####[address] [place], [place] [address] Neutrophils/100 WBC Auto 55.0 37.0-80.0 % Normal 01-01 [facility] ([facility] ([place]) ([id number]) Comment: Performed By: #### CBC, ADIF F, ANEU, GFR, CMP ####[address] [place], [place] [address] Encounters Date Type Reason Provider Location 01-08-2017 - Ambulatory LD Phan ty: 01-08-2017 [facility] 01-01-2017 - Ambulatory [place] 01-02-2017 [facility] 08-08-2017 - Emergency department Belia Newman Facility: 08-08-2017 patient visit NONE PHYSICIAN Payers Payer Name Policy Number [facility] - [id number] [facility] [place] ([place]) ([id number]) Summary Purpose Family History No Family History Records Found Advance Directives No Advanced Directives Records Found Additional Source Comments FOR RECORDS PERTAINING TO PATIENTS WHO ARE OR HAVE BEEN ENROLLED IN A CHEMICAL DEPENDENCY/SUBSTANCE ABUSE PROGRAM, SOME INFORMATION MAY BE OMITTED. This clinical summary was aggregated from multiple sources. Caution should be exercised in using it in the provision of clinical care. This summary normalizes information from multiple sources, and as a consequence, information in this document may materially changethe coding, format and clinical context of patient data. In addition, data may be omittedin some cases. CLINICAL DECISIONS SHOULD BE BASED ON THE PRIMARY CLINICAL RECORDS. [facility] provides no warranty or guarantee of the accuracy or completeness of information in this document. UNRECOGNIZED CONTENT PROVIDED BELOW FOR UNRECOGNIZED SECTION No Status Records Found UNRECOGNIZED CONTENT PROVIDED BELOW FOR UNRECOGNIZED SECTION INFORMATION SOURCE DATE CREATED AUTHOR AUTHOR'S ORGANIZATIO N 10/10/2017 [facility] [place]
== END ==
PROVIDERS: PCP Internal Medicine; Referring Provider Internal Medicine; Visit Provider Internal Medicine
DX: Z00.00 Encounter for general adult medical examination without abnormal findings (principal)
CPT/HCPCS: 80053; 80061; 85025

== ENCOUNTER → 2019-09-16 | Outpatient (CLI) | payer OTHER, SELFPAY ==
[2019-09-15 16:38] VITALS: BMI 38.7
--- NOTE | 2019-09-16 14:55 | RAD_ITS ---
STUDY: X-RAY - LEFT KNEE REASON FOR EXAM: Male, 54 years old. MEDIAL PAIN X3 WEEKS, NKI TECHNIQUE: 3 view(s) of the knee. COMPARISON: Right knee dated October 24, 2016 FINDINGS: Normal visualized distal femur. Normal visualized proximal tibia and fibula. Normal proximal tibiofibular articulation. There is mild degenerative arthrosis of the medial femorotibial compartment. Normal lateral femorotibial compartment. Normal patellofemoral articulation. The soft tissue structures are unremarkable. RAD/Knee 3 Views IMPRESSION: Mild degenerative changes. Electronically Signed: Radha Pickard MD at 15:07 EDT Tel , Service support ,
--- OUTSIDE RECORDS SUMMARY | 2020-02-02 18:01 | XMS RPT_ITS | CCD ---
:1965 External Reference #:[id number] Author Organization [facility] Care Team Providers Name Role Phone ALBERTO, A. Unavailable Unavailable WAYT Unavailable Unavailable ALBERTO, A. Unavailable Unavailable WAYT Unavailable Unavailable Lyren-Barney, E Unavailable Unavailable PHYSICIAN Unavailable Unavailable Results Result Name Value Range Unit Interpretation Flag Date Location ua on 2017-08-08 UA Appear CLEAR Normal 08-08-2017 [facility]) ([id number]) Comment: Performed By: #### CBC, ADIF F, ANEU, GFR, CMP ####[address] [place], [place] [address] UA Blood NEGATIVE Normal 08-08-2017 [facility]) ([id number]) Comment: Performed By: #### CBC, ADIF F, ANEU, GFR, CMP ####[address] [place], [place] [address] UA Leuk Est NEGATIVE Normal 08-08-2017 [facility]) ([id number]) Comment: Performed By: #### CBC, ADIF F, ANEU, GFR, CMP ####[address] [place], [place] [address] UA Nitrite NEGATIVE Normal 08-08-2017 [facility] ([place] ([id number]) Comment: Performed By: #### CBC, ADIF F, ANEU, GFR, CMP ####[address] [place], [place] [address] UA pH 6.0 Normal 08-08-2017 [facility] ([place]) ([id number]) Comment: Performed By: #### CBC, ADIF F, ANEU, GFR, CMP ####[address] [place], [place] [address] UA Protein NEGATIVE Normal 08-08-2017 [facility]) ([id number]) Comment: Performed By: #### CBC, ADIF F, ANEU, GFR, CMP ####[address] [place], [place] [address] UA Spec Grav 1.025 Normal 08-08-2017 [facility]) ([id number]) Comment: Performed By: #### CBC, ADIF F, ANEU, GFR, CMP ####[address] [place], [place] [address] UA Specimen Type Clean Catch Normal 08-08-2017 [facility] ([place]) ([id number]) Comment: Performed By: #### CBC, ADIF F, ANEU, GFR, CMP ####[address] [place], [place] [address] UA Urobilinogen 0.2 E.U./dL Normal 08-08-2017 [facility] 1928–1983) ([id number]) Comment: Performed By: #### CBC, ADIF F, ANEU, GFR, CMP ####[address] [place], [place] [address] Urine, color YELLOW Normal 08-08-2017 [facility]) ([id number]) Comment: Performed By: #### CBC, ADIF F, ANEU, GFR, CMP ####[address] [place], [place] [address] Urine, glucose NEGATIVE mg/dL Normal 08-08-2017 [facility] ([place]) ([id number]) Comment: Performed By: #### CBC, ADIF F, ANEU, GFR, CMP ####[address] [place], [place] [address] Urine, ketones presence NEGATIVE Normal 2017 [facility]) ([id number]) Comment: Performed By: #### CBC, ADIF F, ANEU, GFR, CMP ####[address] [place], [place] [address] Urine, urobilinogen NEGATIVE {Nilda'U}/dL Normal 08-08 [facility]) ([id number]) Comment: Performed By: #### CBC, ADIF F, ANEU, GFR, CMP ####[address] [place], [place] [address] patient summary documents on 2017-08-08 Patient Summary Documents Normal 07-21 [facility] ([place]) ([id number]) pat edu on Pat Edu Normal 08-08-2017 [facility]) ([id number]) [facility] emergency room note on 2017-08-08 [facility] Note Normal 0 08-08-2017 [facility] ([place] ([id number]) [place] Emergency Room Note Normal 0 08-08-2017 [facility]) ([id number]) .urinalysis microscopic (ao) on 2017-08-08 UA Squam Epithelial None Seen None Seen Normal 08-08-2017 [facility] ([place] (0000 0) Comment: Performed By: #### CBC, ADIF F, ANEU, GFR, CMP ####[address] [place], [place] [address] UA WBC None Seen None Seen Normal 08-08-2017 [facility]) ([id number]) Comment: Performed By: #### CBC, ADIF F, ANEU, GFR, CMP ####[address] [place], [place] [address] Urine, erythrocytes None Seen None Seen Normal 08-08-2017 [facility] ([place] (0000 0) Comment: Performed By: #### CBC, ADIF F, ANEU, GFR, CMP ####[address] [place], [place] [address] outpatient patient summary on 2017-01-08 Outpatient Patient Summary Normal [facility] [place] ([id number]) [facility] operative report on 2017-01-08 [place] Operative Report Normal 12-21 [facility] ([place] ([id number]) depart summary on Depart Summary Normal 01-08-2017 [facility]) ([id number]) aoh main or intraop record on 2017-01-08 [facility] MAIN OR Intraop Record Normal [facility] [place] ([id number]) anesthesiology consultation on 2017-01-08 Anesthesiology Consultation Normal [facility] ([place] ([id number]) [place] pre-surgical history and physic al on 2017-01-01 [place] Pre-Surgical History Normal 01-01-2017 [facility] AND [facility] ([place]) (0 0000) cmp on 2017-01-01 Alanine aminotransferase (ALT) 18 10-35 IU/L Normal 01-01-2017 [facility] ([place] ([id number]) Comment: Performed By: #### CBC, ADIF F, ANEU, GFR, CMP ####[address] [place], [place] [address] Alk Phos 81 40-135 IU/L Normal 01-01-2017 [facility] ([place] ([id number]) Comment: Performed By: #### CBC, ADIF F, ANEU, GFR, CMP ####[address] [place] [address] Aspartate aminotransferase 18 10-40 IU/L Normal [facility] [place] [facility]) ([id number]) Comment: Performed By: #### CBC, ADIF F, ANEU, GFR, CMP ####[address] [place], [place] [address] Albumin 4.1 3.5-5.0 G/dL Normal 01-01-2017 [facility]) ([id number]) Comment: Performed By: #### CBC, ADIF F, ANEU, GFR, CMP ####[address] [place], [place] [address] Albumin/Globulin Ratio 1.5 1.1-2.5 ratio Normal 017 [facility] ([place]) (0000 0) Comment: Performed By: #### CBC, ADIF F, ANEU, GFR, CMP ####[address] [place], [place] [address] Bili Total 0.2 0.2-1.0 mg/dL Normal 01-01-2017 [facility] ([place] ([id number]) Comment: Performed By: #### CBC, ADIF F, ANEU, GFR, CMP ####[address] [place], [place] [address] BUN/Creatinine Ratio 17 7-27 ratio Normal 7 [facility] ([place] ([id number]) Comment: Performed By: #### CBC, ADIF F, ANEU, GFR, CMP ####[address] [place], [place] [address] Calcium 9.5 8.4-10.2 mg/dL Normal 01-01-2017 [facility] ([place] ([id number]) Comment: Performed By: #### CBC, ADIF F, ANEU, GFR, CMP ####[address] [place], [place] [address] Chloride 104 98-107 mEq/L Normal 01-01-2017 [facility] ([place] ([id number]) Comment: Performed By: #### CBC, ADIF F, ANEU, GFR, CMP ####[address] [place], [place] [address] CO2 24 22-29 mEq/L Normal 01-01-2017 [facility] ([place] ([id number]) Comment: Performed By: #### CBC, ADIF F, ANEU, GFR, CMP ####[address] [place], [place] [address] Creatinine 1.0 0.6-1.2 mg/dL Normal 01-01-2017 [facility] ([place] ([id number]) Comment: Performed By: #### CBC, ADIF F, ANEU, GFR, CMP ####[address] [place], [place] [address] Electrolyte Balance 9.0 mEq/L Normal 01-01-2017 [facility] ([place] ([id number]) Comment: Performed By: #### CBC, ADIF F, ANEU, GFR, CMP ####[address] [place], [place] [address] Globulin 2.8 G/dL Normal 01-01-2017 [facility] ([place] ([id number]) Comment: Performed By: #### CBC, ADIF F, ANEU, GFR, CMP ####[address] [place], [place] [address] Glucose mass conc 102 70-105 mg/dL Normal 01-01-2017 [facility] ([place] ([id number]) Comment: Performed By: #### CBC, ADIF F, ANEU, GFR, CMP ####[address] [place], [place] [address] Potassium molar conc 4.4 3.5-5.1 mEq/L Normal 7 [facility] ([place]) (0000 0) Comment: Performed By: #### CBC, ADIF F, ANEU, GFR, CMP ####[address] [place], [place] [address] Protein 6.9 6.0-8.3 G/dL Normal 01-01-2017 [facility] ([place] ([id number]) Comment: Performed By: #### CBC, ADIF F, ANEU, GFR, CMP ####[address] [place], [place] [address] Sodium 137 136-146 mEq/L Normal 01-01-2017 [facility] ([place] ([id number]) Comment: Performed By: #### CBC, ADIF F, ANEU, GFR, CMP ####[address] [place], [place] [address] Urea nitrogen 17.4 7.0-18.0 mg/dL Normal 01-01-2017 [facility] ([place]) ([id number]) Comment: Performed By: #### CBC, ADIF F, ANEU, GFR, CMP ####[address] [place], [place] [address] cbc on 2017-01-01 Erythrocyte distribution 13.6 11.5-14.5 % Normal 01-01 [facility] width Auto Ratio (RBC) [facility] ([place]) (02520) Comment: Performed By: #### CBC, ADIF F, ANEU, GFR, CMP ####[address] [place], [place] [address] Erythrocytes (RBC) 4.48 4.04-6.13 10 6/mcL Normal 01-01-2017 [facility] ([place] ([id number]) Comment: Performed By: #### CBC, ADIF F, ANEU, GFR, CMP ####[address] [place], [place] [address] Hematocrit (HCT) 42.2 42.0-52.0 % Normal 01-01-2017 [facility] ([place]) ([id number]) Comment: Performed By: #### CBC, ADIF F, ANEU, GFR, CMP ####[address] [place], [place] [address] Hemoglobin mass conc 14.2 14.0-18.0 G/dL Normal [address] [place] [address] ([facility] ([place]) ([id number]) Comment: Performed By: #### CBC, ADIF F, ANEU, GFR, CMP ####[address] [place], [place] [address] MCH 31.8 27.0-31.2 pg High 01-01-2017 [facility] ([place] ([id number]) Comment: Performed By: #### CBC, ADIF F, ANEU, GFR, CMP ####[address] [place], [place] [address] MCHC mass conc (RBC) 33.7 31.8-35.4 G/dL Normal 7 [facility] ([place]) (0000 0) Comment: Performed By: #### CBC, ADIF F, ANEU, GFR, CMP ####[address] [place], [place] [address] MCV 94.2 80.0-94.0 fL High 01-01-2017 [facility] ([place] ([id number]) Comment: Performed By: #### CBC, ADIF F, ANEU, GFR, CMP ####[address] [place], [place] [address] Platelet mean volume 7.7 7.4-10.4 fL Normal 7 [facility] ([place]) ([place]) (0000 0) Comment: Performed By: #### CBC, ADIF F, ANEU, GFR, CMP ####[address] [place], [place] [address] Platelets 188 130-400 10 3/mcL Normal 01-01-2017 [facility] ([place] ([id number]) Comment: Performed By: #### CBC, ADIF F, ANEU, GFR, CMP ####[address] [place], [place] [address] WBC (Leukocytes) 6.50 4.60-10.80 10 3/mcL Normal 01-01-2017 [facility] ([place] (0000 0) Comment: Performed By: #### CBC, ADIF F, ANEU, GFR, CMP ####[address] [place], [place] [address] .neuabs on Neutrophils 3.60 2.85-6.16 10 3/mcL Normal 01-01-2017 [facility] ([place] ([id number]) Comment: Performed By: #### CBC, ADIF F, ANEU, GFR, CMP ####[address] [place], [place] [address] .gfr on 2017-01-01 eGFR (non-black) >60 mL/min/{1.73_m2} Normal 2016 [facility] ([place]) (0000 0) Comment: Result Comment: GFR Populati [...] ADIF F, ANEU, GFR, CMP ####[address] [place], [place] [address] eGFR (non-black) 92 ml/min/1.73sqm Normal 01-02-20 17 [facility] ([place]) ([id number]) Comment: Result Comment: GFR Populati on mean [...] ADIF F, ANEU, GFR, CMP ####[address] [place], [place] [address] .auto diff on 01-01 Basophils Auto #/vol 0.00 0.00-0.19 10 3/mcL Normal 7 [facility] ([facility]) [facility] ([place] ([id number]) Comment: Performed By: #### CBC, ADIF F, ANEU, GFR, CMP ####[address] [place], [place] [address] Basophils/100 WBC Auto (d) 0.7 0.0-2.5 % Normal 0 01-01-2017 [facility] ([place]) (0000 0) Comment: Performed By: #### CBC, ADIF F, ANEU, GFR, CMP ####[address] [place], [place] [address] Eosinophils 0.20 0.00-0.40 10 3/mcL Normal 01-01-2017 [facility] ([place] (50303) Comment: Performed By: #### CBC, ADIF F, ANEU, GFR, CMP ####[address] [place], [place] [address] Eosinophils/100 leukocytes 2.8 0.0-7.0 % Normal [facility] ([place] (0000 0) Comment: Performed By: #### CBC, ADIF F, ANEU, GFR, CMP ####[address] [place], [place] [address] Lymphocytes 2.10 0.77-3.85 10 3/mcL Normal 01-01-2017 [facility] ([place] ([id number]) Comment: Performed By: #### CBC, ADIF F, ANEU, GFR, CMP ####[address] [place], [place] [address] Lymphocytes/100 leukocytes 32.8 10.0-50.0 % Normal [facility] ([place] ([id number]) Comment: Performed By: #### CBC, ADIF F, ANEU, GFR, CMP ####[address] [place], [place] [address] Monocytes 0.60 0.15-1.00 10 3/mcL Normal 01-01-2017 [facility] ([place] ([id number]) Comment: Performed By: #### CBC, ADIF F, ANEU, GFR, CMP ####[address] [place], [place] [address] Monocytes/100 leukocytes 8.7 1.7-13.0 % Normal 01-01 [facility] ([place] (0000 0) Comment: Performed By: #### CBC, ADIF F, ANEU, GFR, CMP ####[address] [place], [place] [address] Neutrophils/100 WBC Auto 55.0 37.0-80.0 % Normal 01-01 [facility] ([facility] ([place]) (70512) Comment: Performed By: #### CBC, ADIF F, ANEU, GFR, CMP ####[address] [place], [place] [address] Encounters Date Type Reason Provider Location 01-08-2017 - Ambulatory LD Phan ty: 01-08-2017 [facility] 01-01-2017 - Ambulatory [place] 01-02-2017 [facility] 08-08-2017 - Emergency department Belia Newman Facility: 08-08-2017 patient visit NONE PHYSICIAN Payers Payer Name Policy Number [facility] - [id number] [facility] [place] ([place]) ([id number]) Summary Purpose Family History No Family History [...] BE BASED ON THE PRIMARY CLINICAL RECORDS. [facility] provides no warranty or guarantee of the accuracy or completeness of information in this document. UNRECOGNIZED CONTENT PROVIDED BELOW FOR UNRECOGNIZED SECTION No Status Records Found UNRECOGNIZED CONTENT PROVIDED BELOW FOR UNRECOGNIZED SECTION INFORMATION SOURCE DATE CREATED AUTHOR AUTHOR'S ORGANIZATIO N 10/10/2017 [facility] [place] ([place])
== END | disposition home or self-care (01) ==
LOC: RAD 14:49
PROVIDERS: PCP Internal Medicine; Referring Provider Internal Medicine; Visit Provider Internal Medicine
DX: M25.562 Pain in left knee (principal)
CPT/HCPCS: 73562

== ENCOUNTER → 2019-10-01 | Outpatient (CLI) | payer OTHER, SELFPAY ==
[2019-09-15 16:38] VITALS: BMI 38.7
[2019-10-01 10:31] LABS: Erythrocyte Sedimentation Rate 62 mm/hr (0-20)
[2019-10-01 10:33] LABS: Absolute Lymphocyte Count 1.95 X10^3/uL (0.83-4.51); Basophil# 0.03 X10^3/uL; Basophil% 0.3 % (0-1); Eosinophil# 0.23 X10^3/uL; Eosinophils% 2.6 % (0-5); Hematocrit 45.7 % (40-54); Hemoglobin 14.6 g/dL (13.0-16.5); Lymphocyte # 1.95 X10^3/ul (4.0); Lymphocyte % 21.8 % (19-41); Mean Corp Hgb Conc 31.9 g/dL (32-36); Mean Corpuscular Hgb 32.8 pg (27.0-32.0); Mean Corpuscular Volume 102.7 fL (80-94); Monocyte# 0.76 X10^3/uL; Monocyte% 8.5 % (0-10); NRBC Flagged by Analyzer 0 % (0-5); Neutrophil # 5.95 X10^3/uL (2.7-7.7); Neutrophil % 66.5 % (47-70); Platelet Count 226 K/mm3 (150-450); RBC Distribution Width CV 13.1 % (11.6-14.6); RBC Distribution Width SD 49.2 fl (35.1-43.9); Red Blood Count 4.45 M/mm3 (4.6-6.2)
[2019-10-01 13:04] LABS: Anion Gap 4 (5-15); BUN 12 mg/dL (7-18); BUN/Creat Ratio 10.7 RATIO (10-20); CRP 6.31 mg/L (0.0-3.0); Calcium,Total 9.3 mg/dL (8.5-10.1); Chloride 108 mmol/L (98-107); Creatinine, Serum 1.12 mg/dL (0.70-1.30); EST Glomerular Filtration Rate 72 mL/min (>60); Est Glom Filt Rate - Afr Amer 87 mL/min (>60); Glucose 108 mg/dL (74-106); Potassium 4.3 mmol/L (3.5-5.1); Sodium Level 141 mmol/L (136-145)
--- OUTSIDE RECORDS SUMMARY | 2020-02-07 11:37 | XMS RPT_ITS | CCD ---
:1965 External Reference #:[id number] Author Organization [facility] Care Team Providers Name Role Phone ALBERTO, A. Unavailable Unavailable WAYT Unavailable Unavailable ALBERTO A. Unavailable Unavailable WAYT Unavailable Unavailable Lyren-Barney, E Unavailable Unavailable PHYSICIAN Unavailable Unavailable Results Result Name Value Range Unit Interpretation Flag Date Location ua on 2017-08-08 UA Appear CLEAR Normal 08-08-2017 [facility]) ([id number]) Comment: Performed By: #### CBC, ADIF F, ANEU, GFR, CMP ####[address] [place], [place] [address] UA Blood NEGATIVE Normal 08-08-2017 [facility]) ([id number]) Comment: Performed By: #### CBC, ADIF F, ANEU, GFR, CMP ####[address] [place], [place] [address] UA Leuk Est NEGATIVE Normal 08-08-2017 [facility]) ([id number]) Comment: Performed By: #### CBC, ADIF F, ANEU, GFR, CMP ####[address] [place], [place] [address] UA Nitrite NEGATIVE Normal 08-08-2017 [facility] ([place]) ([id number]) Comment: Performed By: #### CBC, ADIF F, ANEU, GFR, CMP ####[address] [place], [place] [address] UA pH 6.0 Normal 08-08-2017 [facility] ([place]) ([id number]) Comment: Performed By: #### CBC, ADIF F, ANEU, GFR, CMP ####[address] [place], [place] [address] UA Protein NEGATIVE Normal 08-08-2017 [facility]) ([id number]) Comment: Performed By: #### CBC, ADIF F, ANEU, GFR, CMP ####[address] [place], [place] [address] UA Spec Grav 1.025 Normal 08-08-2017 [facility]) ([id number]) Comment: Performed By: #### CBC, ADIF F, ANEU, GFR, CMP ####[address] [place], [place] [address] UA Specimen Type Clean Catch Normal 08-08-2017 [facility] ([place]) ([id number]) Comment: Performed By: #### CBC, ADIF F, ANEU, GFR, CMP ####[address] [place], [place] [address] UA Urobilinogen 0.2 E.U./dL Normal 08-08-2017 [facility]) ([id number]) Comment: Performed By: #### CBC, ADIF F, ANEU, GFR, CMP ####[address] [place], [place] [address] Urine, color YELLOW Normal 08-08-2017 [facility]) ([id number]) Comment: Performed By: #### CBC, ADIF F, ANEU, GFR, CMP ####[address] [place], [place] [address] Urine, glucose NEGATIVE mg/dL Normal 08-08-2017 [facility] ([place]) ([id number]) Comment: Performed By: #### CBC, ADIF F, ANEU, GFR, CMP ####[address] [place], [place] [address] Urine, ketones presence NEGATIVE Normal 2017 [facility]) ([id number]) Comment: Performed By: #### CBC, ADIF F, ANEU, GFR, CMP ####[address] [place], [place] [address] Urine, urobilinogen NEGATIVE {Nilda'U}/dL Normal 08-08 [facility]) ([id number]) Comment: Performed By: #### CBC, ADIF F, ANEU, GFR, CMP ####[address] [place], [place] [address] patient summary documents on 2017-08-08 Patient Summary Documents Normal 07-21 [facility] ([place]) ([id number]) pat edu on Pat Edu Normal 08-08-2017 [facility]) ([id number]) [facility] note on 2017-08-08 [facility] Note Normal 0 08-08-2017 [facility] ([place]) ([id number]) [facility] Normal 0 08-08-2017 [facility]) ([id number]) .urinalysis microscopic (ao) on 2017-08-08 UA Squam Epithelial None Seen None Seen Normal 08-08-2017 [facility] ([place]) (0000 0) Comment: Performed By: #### CBC, ADIF F, ANEU, GFR, CMP ####[address] [place], [place] [address] UA WBC None Seen None Seen Normal 08-08-2017 [facility]) ([id number]) Comment: Performed By: #### CBC, ADIF F, ANEU, GFR, CMP ####[address] [place], [place] [address] Urine, erythrocytes None Seen None Seen Normal 08-08-2017 [facility] ([place]) (0000 0) Comment: Performed By: #### CBC, ADIF F, ANEU, GFR, CMP ####[address] [place], [place] [address] outpatient patient summary on 2017-01-08 Outpatient Patient Summary Normal [facility] ([place]) ([id number]) [place] operative report on 2017-01-08 [facility] Report Normal 12-21 [facility] ([place] ([id number]) depart summary on Depart Summary Normal 01-08-2017 [facility]) ([id number]) [facility] main or intraop record on 2017-01-08 [facility] MAIN OR Intraop Record Normal [facility] ([place]) ([id number]) anesthesiology consultation on 2017-01-08 Anesthesiology Consultation Normal [facility] ([place] ([id number]) [place] pre-surgical history and physic al on 2017-01-01 [facility] Pre-Surgical History Normal 01-01-2017 [facility] ([place]) (0 0000) cmp on 2017-01-01 Alanine aminotransferase (ALT) 18 10-35 IU/L Normal 01-01-2017 [facility] ([place] ([id number]) Comment: Performed By: #### CBC, ADIF F, ANEU, GFR, CMP ####[address] [place], [place] [address] Alk Phos 81 40-135 IU/L Normal 01-01-2017 [facility] ([place]) ([id number]) Comment: Performed By: #### CBC, ADIF F, ANEU, GFR, CMP ####[address] [place] [address] Aspartate aminotransferase 18 10-40 IU/L Normal [facility] ([id number]) Comment: Performed By: #### CBC, ADIF F, ANEU, GFR, CMP ####[address] [place], [place] [address] Albumin 4.1 3.5-5.0 G/dL Normal 01-01-2017 [facility]) ([id number]) Comment: Performed By: #### CBC, ADIF F, ANEU, GFR, CMP ####[address] [place], [place] [address] Albumin/Globulin Ratio 1.5 1.1-2.5 ratio Normal 017 [facility] ([place]) (0000 0) Comment: Performed By: #### CBC, ADIF F, ANEU, GFR, CMP ####[address] [place], [place] [address] Bili Total 0.2 0.2-1.0 mg/dL Normal 01-01-2017 [facility] ([place] ([id number]) Comment: Performed By: #### CBC, ADIF F, ANEU, GFR, CMP ####[address] [place], [place] [address] BUN/Creatinine Ratio 17 7-27 ratio Normal 7 [facility] ([place] ([id number]) Comment: Performed By: #### CBC, ADIF F, ANEU, GFR, CMP ####[address] [place], [place] [address] Calcium 9.5 8.4-10.2 mg/dL Normal 01-01-2017 [facility] ([place]) ([id number]) Comment: Performed By: #### CBC, ADIF F, ANEU, GFR, CMP ####[address] [place], [place] [address] Chloride 104 98-107 mEq/L Normal 01-01-2017 [facility] ([place]) ([id number]) Comment: Performed By: #### CBC, ADIF F, ANEU, GFR, CMP ####[address] [place], [place] [address] CO2 24 22-29 mEq/L Normal 01-01-2017 [facility] ([place] ([id number]) Comment: Performed By: #### CBC, ADIF F, ANEU, GFR, CMP ####[address] [place], [place] [address] Creatinine 1.0 0.6-1.2 mg/dL Normal 01-01-2017 [facility] ([place]) ([id number]) Comment: Performed By: #### CBC, ADIF F, ANEU, GFR, CMP ####[address] [place], [place] [address] Electrolyte Balance 9.0 mEq/L Normal 01-01-2017 [facility] ([place] ([id number]) Comment: Performed By: #### CBC, ADIF F, ANEU, GFR, CMP ####[address] [place], [place] [address] Globulin 2.8 G/dL Normal 01-01-2017 [facility] ([place]) ([id number]) Comment: Performed By: #### CBC, ADIF F, ANEU, GFR, CMP ####[address] [place], [place] [address] Glucose mass conc 102 70-105 mg/dL Normal 01-01-2017 [facility] ([place]) ([id number]) Comment: Performed By: #### CBC, ADIF F, ANEU, GFR, CMP ####[address] [place], [place] [address] Potassium molar conc 4.4 3.5-5.1 mEq/L Normal 7 [facility] ([place]) (0000 0) Comment: Performed By: #### CBC, ADIF F, ANEU, GFR, CMP ####[address] [place], [place] [address] Protein 6.9 6.0-8.3 G/dL Normal 01-01-2017 [facility] ([place]) ([id number]) Comment: Performed By: #### CBC, ADIF F, ANEU, GFR, CMP ####[address] [place], [place] [address] Sodium 137 136-146 mEq/L Normal 01-01-2017 [facility] ([place]) ([id number]) Comment: Performed By: #### CBC, ADIF F, ANEU, GFR, CMP ####[address] [place], [place] [address] Urea nitrogen 17.4 7.0-18.0 mg/dL Normal 01-01-2017 [facility] ([place]) ([id number]) Comment: Performed By: #### CBC, ADIF F, ANEU, GFR, CMP ####[address] [place], [place] [address] cbc on 2017-01-01 Erythrocyte distribution 13.6 11.5-14.5 % Normal 01-01 [facility] width Auto Ratio (RBC) [facility] ([place]) ([id number]) Comment: Performed By: #### CBC, ADIF F, ANEU, GFR, CMP ####[address] [place], [place] [address] Erythrocytes (RBC) 4.48 4.04-6.13 10 6/mcL Normal 01-01-2017 [facility] ([place]) ([id number]) Comment: Performed By: #### CBC, ADIF F, ANEU, GFR, CMP ####[address] [place], [place] [address] Hematocrit (HCT) 42.2 42.0-52.0 % Normal 01-01-2017 [facility] ([place]) ([id number]) Comment: Performed By: #### CBC, ADIF F, ANEU, GFR, CMP ####[address] [place], [place] [address] Hemoglobin mass conc 14.2 14.0-18.0 G/dL Normal [address] [place] [address] ([facility] ([place]) ([id number]) Comment: Performed By: #### CBC, ADIF F, ANEU, GFR, CMP ####[address] [place], [place] [address] MCH 31.8 27.0-31.2 pg High 01-01-2017 [facility] ([place]) ([id number]) Comment: Performed By: #### CBC, ADIF F, ANEU, GFR, CMP ####[address] [place], [place] [address] MCHC mass conc (RBC) 33.7 31.8-35.4 G/dL Normal 7 [facility] ([place]) (0000 0) Comment: Performed By: #### CBC, ADIF F, ANEU, GFR, CMP ####[address] [place], [place] [address] MCV 94.2 80.0-94.0 fL High 01-01-2017 [facility] ([place]) ([id number]) Comment: Performed By: #### CBC, ADIF F, ANEU, GFR, CMP ####[address] [place], [place] [address] Platelet mean volume 7.7 7.4-10.4 fL Normal 7 [facility] ([place]) ([place]) (0000 0) Comment: Performed By: #### CBC, ADIF F, ANEU, GFR, CMP ####[address] [place], [place] [address] Platelets 188 130-400 10 3/mcL Normal 01-01-2017 [facility] ([place]) ([id number]) Comment: Performed By: #### CBC, ADIF F, ANEU, GFR, CMP ####[address] [place], [place] [address] WBC (Leukocytes) 6.50 4.60-10.80 10 3/mcL Normal 01-01-2017 [facility] ([place]) (0000 0) Comment: Performed By: #### CBC, ADIF F, ANEU, GFR, CMP ####[address] [place], [place] [address] .neuabs on Neutrophils 3.60 2.85-6.16 10 3/mcL Normal 01-01-2017 [facility] ([place]) ([id number]) Comment: Performed By: #### CBC, ADIF F, ANEU, GFR, CMP ####[address] [place], [place] [address] .gfr on 2017-01-01 eGFR (non-black) >60 mL/min/{1.73_m2} Normal 2016 [facility] ([place]) (0000 0) Comment: Result Comment: GFR Populati [...] ADIF F, ANEU, GFR, CMP ####[address] [place], [place] [address] eGFR (non-black) 92 ml/min/1.73sqm Normal 01-02-20 17 [facility] ([place]) ([id number]) Comment: Result Comment: GFR Populati on mean [...] ADIF F, ANEU, GFR, CMP ####[address] [place], [place] [address] .auto diff on 01-01 Basophils Auto #/vol 0.00 0.00-0.19 10 3/mcL Normal 7 [facility] ([facility]) [facility] ([place]) ([id number]) Comment: Performed By: #### CBC, ADIF F, ANEU, GFR, CMP ####[address] [place], [place] [address] Basophils/100 WBC Auto (d) 0.7 0.0-2.5 % Normal 0 01-01-2017 [facility] ([place]) (0000 0) Comment: Performed By: #### CBC, ADIF F, ANEU, GFR, CMP ####[address] [place], [place] [address] Eosinophils 0.20 0.00-0.40 10 3/mcL Normal 01-01-2017 [facility] ([place]) ([id number]) Comment: Performed By: #### CBC, ADIF F, ANEU, GFR, CMP ####[address] [place], [place] [address] Eosinophils/100 leukocytes 2.8 0.0-7.0 % Normal [facility] ([place]) (0000 0) Comment: Performed By: #### CBC, ADIF F, ANEU, GFR, CMP ####[address] [place], [place] [address] Lymphocytes 2.10 0.77-3.85 10 3/mcL Normal 01-01-2017 [facility] ([place]) ([id number]) Comment: Performed By: #### CBC, ADIF F, ANEU, GFR, CMP ####[address] [place], [place] [address] Lymphocytes/100 leukocytes 32.8 10.0-50.0 % Normal [facility] ([place]) ([id number]) Comment: Performed By: #### CBC, ADIF F, ANEU, GFR, CMP ####[address] [place], [place] [address] Monocytes 0.60 0.15-1.00 10 3/mcL Normal 01-01-2017 [facility] ([place]) ([id number]) Comment: Performed By: #### CBC, ADIF F, ANEU, GFR, CMP ####[address] [place], [place] [address] Monocytes/100 leukocytes 8.7 1.7-13.0 % Normal 01-01 [facility] ([place]) (0000 0) Comment: Performed By: #### CBC, ADIF F, ANEU, GFR, CMP ####[address] [place], [place] [address] Neutrophils/100 WBC Auto 55.0 37.0-80.0 % Normal 01-01 [facility] ([facility] ([place]) ([id number]) Comment: Performed By: #### CBC, ADIF F, ANEU, GFR, CMP ####[address] [place], [place] [address] Encounters Date Type Reason Provider Location 01-08-2017 - Ambulatory LD Phan ty: 01-08-2017 [facility] 01-01-2017 - Ambulatory LD Phan ty:DRAPER 01-02-2017 [facility] 08-08-2017 - Emergency department Belia Newman Facility: 08-08-2017 patient visit NONE PHYSICIAN Payers Payer Name Policy Number [facility] - A02 [id number] [facility] [place] ([place]) ([id number]) Summary Purpose Family History No Family History [...] BE BASED ON THE PRIMARY CLINICAL RECORDS. [facility] provides no warranty or guarantee of the accuracy or completeness of information in this document. UNRECOGNIZED CONTENT PROVIDED BELOW FOR UNRECOGNIZED SECTION No Status Records Found UNRECOGNIZED CONTENT PROVIDED BELOW FOR UNRECOGNIZED SECTION INFORMATION SOURCE DATE CREATED AUTHOR AUTHOR'S ORGANIZATIO N 10/10/2017 [facility] [place] ([place])
== END | disposition home or self-care (01) ==
LOC: LAB 09:48
PROVIDERS: PCP Internal Medicine; Referring Provider Physician Assistant; Visit Provider Physician Assistant
DX: M25.562 Pain in left knee (principal)
CPT/HCPCS: 80048; 85025; 85652; 86140

== ENCOUNTER 2019-12-07 11:29 | Emergency (ER) | payer OTHER, SELFPAY ==
[2019-09-15 16:38] VITALS: BMI 38.7
[2019-12-07 11:30] VITALS: BP 144/93; PULSE 83; RESP 15; TEMP 36.6; O2SAT 97; BMI 35.6
--- NOTE | 2019-12-07 11:38 | RAD_ITS ---
STUDY: X-RAY - LEFT TIBIA AND FIBULA REASON FOR EXAM: Male, 54 years old. LEFT WEBB INJURY A COUPLE DAYS AGO. PAIN TO ANTERIOR PART OF LEG TECHNIQUE: 4 view(s) of the tibia and fibula were obtained. COMPARISON: None. FINDINGS: Normal visualized tibia. Normal visualized fibula. The soft tissue structures are unremarkable. RAD/Tibia & Fibula 2 Views IMPRESSION: Normal x-ray examination of the tibia and fibula. Electronically Signed: Maykel Newman MD at 11:54 EDT , Service support ,
--- NOTE | 2019-12-07 12:19 | ED.DCSUM_ITS ---
- ER Visit Summary Date of Service: 12/07/19 Chief Complaint: Left lower leg pain post injury History of Present Illness: The patient is a 54 M no significant past medical history. Patient states he was working on his truck at home on Saturday a 15 pound caliper fell off the truck and hitting on his left mid to lower capone. Since that time he has had pain. Said he is tried multiple NSAIDs without relief. He denies any fever or chills. Denies any other injuries or complaints. Physical Examination: Middle-aged male no acute distress vital signs are stable and afebrile. H EENT exam unremarkable. Lungs clear to auscultation. Heart regular rhythm. Abdomen soft nontender. Extremities moves all 4. Neurovascular intact. His left mid capone there is tenderness and swelling. There is no cellulitis. No warmth. No streaking. DP pulse is intact. Dorsi plantarflexion is intact. He does have pain with palpation of the midportion of the lower leg. No gross bony deformity. No signs of compartment syndrome. Calf is nontender nonswollen. Neurologically is awake alert with no focal motor deficits. Test Results: X-ray left tib-fib 2 views read by myself shows no acute abnormality. Also read by the radiologist. No fracture. Emergency Department Course and Treatment: [place] x2 for pain. Currently no signs of infection. He did not want crutches. Treatment Plan: Limited [place] for pain. 14 no refill. Continue NSAIDs. Ice and elevate. If not improving follow-up with his primary care physician. Return if any signs of infection. Disposition: Discharge Impression: Left lower leg contusion This note was generated with [employer] dictation software. It may contain incorrect words, spelling, and punctuation that were not noted in review of the chart prior to signing ED Disposition - Plan for ED Patient: Referrals: Josh Leach MD [Primary Care Provider] -
--- NOTE | 2019-12-07 12:24 | ED.DEP ---
ED Disposition - Plan for ED Patient: Disposition: Home or Assisted Living Instructions: ED EXTREMITY CONTUSION Lower Prescriptions: Hydrocodone/Acetaminophen [[facility] 10-325 Tablet] 1 ea PO 4X/DAY PRN PRN 4 Days #14 tab PRN Reason: Pain Or Fever Prescription Printed Referrals: Josh Leach MD [Primary Care Provider] - 1 Week if not improving Additional Instructions: Ice and elevate left lower leg to decrease pain and swelling. Continue Motrin or Aleve for anti-inflammation and pain and [facility] for more severe pain. Do not drink alcohol or drive while taking the [facility]. Follow-up with your doctor if not improving in 1 week. Your x-rays today showed no signs of any broken bone. And your exam at this time shows no signs of infection. If you get redness or fever return for further evaluation or follow-up with your doctor.
[2019-12-07] MEDS: HYDROcodone Bitartrate/Apap 5/325 Tablet PO (12:32)
[2019-12-07 12:39] VITALS: RESP 16
--- NOTE | 2019-12-07 12:40 | ED.RN ---
REVIEWED D/C INSTRUCTIONS, FOLLOW UP CARE, PRESCRIPTION, AND S/S THAT WOULD WARRANT A RETURN TO THE ED WITH PT. PT VERBALIZED AN UNDERSTANDING AND DENIES FURTHER QUESTIONS FOR THIS RN. PT SKIN P/W/D, RESP EVEN AND UNLABORED, PT A&O X 3, NO DISTRESS NOTED. PT AMBULATED OUT OF ED, GAIT STEADY.
== END 2019-12-07 12:42 | disposition home or self-care (01) ==
PROVIDERS: Emergency Provider Emergency Medicine; PCP Internal Medicine
DX: S80.12XA Contusion of left lower leg, initial encounter (principal); Z72.0 Tobacco use; W20.8XXA Other cause of strike by thrown, projected or falling object, initial encounter; Y93.89 Activity, other specified; Y92.008 Other place in unspecified non-institutional (private) residence as the place of occurrence of the external cause; Y99.8 Other external cause status
CPT/HCPCS: 73590; 99283

== ENCOUNTER 2020-10-23 14:13 | Emergency (ER) | payer OTHER, SELFPAY ==
[2020-03-16 16:52] VITALS: BMI 38.5
[2020-10-23 14:14] VITALS: BP 160/80; PULSE 61; RESP 16; TEMP 37.1; O2SAT 98; BMI 36.3
--- NOTE | 2020-10-23 15:05 | EKG12_ITS ---
Test Reason : CP Blood Pressure : / mmHG Vent. Rate : 058 BPM Atrial Rate : 058 BPM P-R Int : 204 ms QRS Dur : 092 ms QT Int : 390 ms P-R-T Axes : 027 008 034 degrees QTc Int : 382 ms Sinus bradycardia Otherwise normal ECG Confirmed by ASH ARRIAZA, SERGIO ([id number]), playground director JANKI SANTIAGO ([id number]) on 10/26/2020 1:18:55 PM Referred By: ADOLFO Confirmed By:SERGIO ALEMAN MD
[2020-10-23 15:17] VITALS: PULSE 59; RESP 16
--- NOTE | 2020-10-23 15:19 | EDS_ITS ---
HPI History of Present Illness Chief Complaint: Chest Pain Informant: patient Narrative Narrative: Patient is a 55-year-old male with history of hypertension, hyperlipidemia who presents to the emergency department for chest pain. He currently rates the pain as a 4 out of 10. No known aggravating or relieving factors. Denies ever having this happen before. It started yesterday. He does not recall any inciting event. No associated shortness of breath, heart palpitations. Denies any recent illness including any cough or fever/chills. No nausea, diaphoresis with this. No radiation of the pain. No leg swelling or calf pain. He denies any personal history of CAD, DVT/PE. He states that he has been doing a lot of heavy lifting at work over the past week. Patient has taken [id number]-rypztmq pain medication for this which did not give him any relief. [facility] Medical History (Updated 10/24/20 @ 23:[address] Jorge Sanchez DO) History of high cholesterol History of rotator cuff tear Home Medications NK 10/23/20 [History Last Taken Unknown] Allergy/AdvReac Type Severity Reaction Status Date / Time No Known Allergies Allergy Verified 10/23/20 14:14 Family History Other unknown Surgical History H/O right knee surgery History of shoulder surgery Social History Smoking Status: Current every day smoker tobacco type: cigarettes Tobacco: How many years used: 47 Electronic Cigarette Use: not used second hand exposure: Yes quit status: has quit before counseling given: provider counseling alcohol intake: never substance use type: marijuana what type of physical activity do you participate in: none ROS ROS ED Constitutional Constitutional ED: Denies chills or fever(s) Eyes Eyes: Denies change in vision ENT ENT ED: Denies epistaxis or rhinorrhea Cardiovascular Cardiovascular: Reports chest pain; Denies palpitations Respiratory/Chest Respiratory/Chest: Denies cough, dyspnea or dyspnea on exertion Gastrointestinal Gastrointestinal: Denies abdominal pain, diarrhea, nausea or vomiting Genitourinary Genitourinary ED: Denies dysuria, hematuria or urinary frequency Musculoskeletal Musculoskeletal: Denies back pain or neck pain Integumentary Denies rash Neurologic Neurologic: Denies dizziness, headache(s) or weakness EXAM Physical Exam Const Vital Signs: 10/23/20 14:14 10/23/20 15:17 Temperature 98.7 F Temperature Source Temporal Pulse Rate 61 59 L Respiratory Rate 16 16 Blood Pressure 160/80 H Blood Pressure Mean 106 Pulse Ox 98 Oxygen Delivery Method Room Air Positive well nourished and well developed General Appearance ED: well developed and NAD HEENT Reports normocephalic, head/scalp atraumatic and moist mucous membranes Eyes PERRL and EOMs intact bilaterally Neck supple Chest Wall inspection of chest normal Chest Narrative: Mild pain to palpation along the left sternal border. Resp normal respiratory effort and clear to auscultation bilaterally Auscultation: Negative for rales, rhonchi or wheezes Cardio regular rate, regular rhythm and no murmurs GI normal to inspection, nondistended, normoactive bowel sounds and non-tender Palpation: soft; Negative for guarding or rebound tenderness present Back/Spine no CVA tenderness Extremity normal to inspection Extremity Narrative: Trace edema bilateral lower extremities. General Extremety ED: Negative for tenderness Neuro oriented x3, CN's II-XII intact bilaterally and no sensory deficits noted Sensorium / Orientation: alert Motor Exam: strength 5/5 throughout Psych mental status grossly normal Skin no rashes or lesions noted Heart Score History: Slightly/Non-Suspicious ECG: Normal Age: >45 - <65 years Risk Factors: >/= 3 Risk Factors or History of CAD Score: 3 MDM MDM MDM Narrative Medical decision making narrative: Patient presents the ED for chest pain. He does have some tenderness along the left sternal border on exam. Vital signs show him to be hypertensive upon arrival but otherwise normal. EKG, chest x-ray and basic lab work obtained. He is given a dose of Toradol for symptomatic relief. Patient's lab work does not reveal a significant acute abnormality. His troponin is within normal limits. Is not anemic. No electrolyte disturbance. Chest x-ray is clear. I have very low concern for ACS, thromboembolism, aortic catastrophe. He is feeling better on reexamination. I did offer repeat troponin but patient declining. Believe that this most likely costochondritis g iven the reproducibility of it with palpation. He is to follow-up with his PCP. Recommend symptomatic treatment at home. Return precautions are reviewed. EKG Initial EKG: Attestation: I personally reviewed and interpreted this EKG as follows: (Rate of 58 bpm in sinus bradycardia. Normal intervals. Normal axis. No significant ST elevations or depressions. No T wave abnormalities.) Discharge Plan Triage Chief Complaint: Chest Pain ED Provider: Jorge Sanchez Dx/Rx/DC Orders Clinical Impression: Chest wall pain Instructions: ED Chest Pain, Noncardiac (Child) Prescriptions: No Action NK RF: 0 Primary Care Provider: Josh Leach Referrals: Josh Leach MD [Primary Care Provider] - 1 Day Disposition Disposition: Home, Self Care Discharge Date/Time: 10/23/20 17:29
[2020-10-23] MEDS: Ketorolac 30 MG/ML Syringe IV (15:26)
[2020-10-23 15:36] LABS: Hematocrit 44.3 % (40-54); Hemoglobin 14.4 g/dL (13.0-16.5); Mean Corp Hgb Conc 32.5 g/dL (32-36); Mean Corpuscular Volume 98.4 fL (80-94); Mean Platelet Vol. 8.9 fl (6.2-12.0); Platelet Count 260 K/mm3 (150-450); RBC Distribution Width CV 12.7 % (11.6-14.6); RBC Distribution Width SD 46.3 fl (35.1-43.9); White Blood Count 7.2 K/mm3 (4.4-11.0)
[2020-10-23 16:05] LABS: ALB/GLOB Ratio 1.1 RATIO (0.9-2.4); AST(SGOT) 19 U/L (15-37); Alanine Aminotransfer ALT/SGPT 24 U/L (16-61); Albumin, Serum 3.8 g/dL (3.2-5.0); Alkaline Phosphatase 94 U/L (45-117); Anion Gap 7 (5-15); BUN 16 mg/dL (7-18); BUN/Creat Ratio 15.1 RATIO (10-20); Chloride 104 mmol/L (98-107); Creatinine, Serum 1.06 mg/dL (0.70-1.30); EST Glomerular Filtration Rate 76 mL/min (>60); Est Glom Filt Rate - Afr Amer 92 mL/min (>60); Estimated Creatinine Clearance 89.39 ml/min; Globulin 3.6 g/dL (2.2-4.2); Glucose 103 mg/dL (74-106); Potassium 3.7 mmol/L (3.5-5.1); Protein, Total 7.4 g/dL (6.4-8.2); Sodium Level 138 mmol/L (136-145); Troponin-I HS 5.3 pg/mL (3.0-78.5)
--- NOTE | 2020-10-23 16:13 | RAD_ITS ---
HISTORY: CP EXAMINATION/TECHNIQUE: XR Chest 2 Views: 2 views COMPARISON: 01/16/19 FINDINGS: LINES/DEVICES: None. LUNGS: Stable hyperinflation with chronic blunting of the right costophrenic angle. No consolidation or mass. No vascular congestion MEDIASTINUM AND CARDIOVASCULAR STRUCTURES: Cardiac silhouette not enlarged. Central airways and mediastinal contour are unremarkable. BONES AND SOFT TISSUES: No acute bony abnormalities. RAD/Chest PA and Lateral IMPRESSION: No radiographic evidence of acute cardiopulmonary disease. COPD. at 1638 Reported and signed by: Pipo Rodriguez MD Electronically Signed: Pipo Rodriguez MD at 16:37 EDT Tel , Service support ,
[2020-10-23 17:00] VITALS: PULSE 77; RESP 15; O2SAT 100
== END 2020-10-23 17:29 | disposition home or self-care (01) ==
PROVIDERS: Emergency Provider Emergency Medicine; PCP Internal Medicine
DX: R07.89 Other chest pain (principal); I10 Essential (primary) hypertension; E78.5 Hyperlipidemia, unspecified; F17.210 Nicotine dependence, cigarettes, uncomplicated
CPT/HCPCS: 71046; 80053; 84484; 85027; 93005; 96374; 99285; A4216

== ENCOUNTER 2020-12-06 08:24 | Emergency (ER) | payer OTHER, SELFPAY ==
[2020-12-06 08:24] VITALS: BP 175/106; PULSE 71; RESP 18; TEMP 36.6; O2SAT 99; BMI 36.1
--- NOTE | 2020-12-06 08:37 | EDS_ITS ---
HPI History of Present Illness Chief Complaint: Fall Informant: patient Narrative Narrative: 55-year-old male presents the emergency department with left shoulder pain. He states that last night he was coming down some stairs in the rain and slipped. He landed on his left side. He notes pain in left shoulder. States he has had prior rotator cuff surgery on that side about a year ago. States while in physical therapy it retore. He has not been back for multiple reasons. He reports pain the anterior aspect of the shoulder with radiation to his hand. He has attempted icing and heat. He notes limited range of motion due to pain. [facility] Medical History (Updated 12/06/20 @ 09:[address] Domingo Manley DO) History of high cholesterol History of rotator cuff tear Home Medications NK 10/23/20 [History Last Taken Unknown] naproxen 500 mg PO BID #14 tab 12/06/20 [Rx Last Taken Unknown] tramadol 50 mg PO Q6H PRN PRN 3 Days #12 tab 12/06/20 [Rx Last Taken Unknown] Allergy/AdvReac Type Severity Reaction Status Date / Time No Known Allergies Allergy Verified 12/06/20 08:26 Family History Other unknown Surgical History H/O right knee surgery History of shoulder surgery Social History Smoking Status: Current every day smoker tobacco type: cigarettes Tobacco: How many years used: 47 Electronic Cigarette Use: not used second hand exposure: Yes quit status: has quit before counseling given: provider counseling alcohol intake: never substance use type: marijuana what type of physical activity do you participate in: none ROS ROS ED Constitutional Constitutional ED: Denies chills or weight loss Eyes Eyes: Denies change in vision or diplopia ENT ENT ED: Denies ear pain, rhinorrhea or sore throat Cardiovascular Cardiovascular: Denies chest pain, orthopnea, palpitations or racing heartbeat Respiratory/Chest Respiratory/Chest: Denies cough, dyspnea or orthopnea Gastrointestinal Gastrointestinal: Denies abdominal pain, diarrhea, nausea or vomiting Genitourinary Genitourinary ED: Denies dysuria, hematuria or urinary frequency Musculoskeletal Musculoskeletal: Reports other Details: History of present illness ; Denies arthralgias or myalgias Integumentary Denies abscess or rash Neurologic Neurologic: Denies headache(s) or weakness Psychiatric Psychiatric: Denies anxiety, depression, suicidal ideation or suicidal thoughts Endocrine Endocrinology: Denies polydipsia, polyphagia or polyuria Allergic/Immunologic Allergic/Immunologic ED: Denies mouth swelling, tongue swelling or urticaria EXAM Physical Exam Const Vital Signs: 12/06/20 08:24 12/06/20 08:33 Temperature 98 F Temperature Source Temporal Pulse Rate 71 Respiratory Rate 18 Respiratory Effort Normal Non-Labored Blood Pressure 175/106 H Blood Pressure Mean 129 Pulse Ox 99 Oxygen Delivery Method Room Air Positive well nourished and well developed General Appearance ED: well developed HEENT Reports normocephalic, head/scalp atraumatic and moist mucous membranes Eyes PERRL and EOMs intact bilaterally Neck no lymphadenopathy, supple and no JVD Resp normal respiratory effort and clear to auscultation bilaterally Cardio regular rate, regular rhythm and no murmurs GI normal to inspection, nondistended, normoactive bowel sounds and non-tender Palpation: soft Back/Spine no CVA tenderness and normal ROM Extremity Extremity Narrative: Patient has tenderness to palpation of the anterior lateral aspect of the proximal left shoulder. No tenderness along the clavicle or the scapular spine. Patient goes to grab my hand with light palpation of the biceps tendon. There is no obvious deformity. Neurovascular intact. General Extremety ED: Negative for edema General Extremity: Negative for edema Neuro oriented x3 and CN's II-XII intact bilaterally Sensorium / Orientation: alert Motor Exam: strength 5/5 throughout Psych mental status grossly normal Mood & Affect: Negative for depressed or tearful Skin no rashes or lesions noted and no wounds MDM MDM MDM Narrative Medical decision making narrative: My interpretation of the plain films of the left shoulder is no acute fracture. No degenerative changes. Patient will be discharged home with instructions for anti-inflammatories. Can write a few Ultram for pain. Recommend continued ice and orthopedic follow-up Radiography Diagnostic Testing: Radiology Impression Shoulder X-Ray 12/06/20 08:40 IMPRESSION: Degenerative changes. Electronically Signed: Jaiden Fall MD at 8:58 EDT , Service support , Discharge Plan Triage Chief Complaint: Fall ED Provider: Domingo Manley Dx/Rx/DC Orders Clinical Impression: Contusion of left shoulder Instructions: ED Contusion, Upper Extremity, ED Shoulder Contusion Prescriptions: New tramadol 50 MG tablet 50 mg PO Q6H PRN PRN (Reason: Pain) 3 Days Qty: 12 RF: 0 naproxen 500 MG tablet 500 mg PO BID Qty: 14 RF: 0 No Action NK RF: 0 Primary Care Provider: Josh Leach Referrals: Josh Leach MD [Primary Care Provider] - Srinivas Johnson DO [STAFF PHYSICIAN] - 10-14 Days if not better Disposition Disposition: Home, Self Care
--- NOTE | 2020-12-06 08:40 | RAD_ITS ---
STUDY: X-RAY - LEFT SHOULDER REASON FOR EXAM: Male, 55 years old. Injury TECHNIQUE: 4 view(s) of the shoulder. COMPARISON: Comparison is made with prior study 10/05/2018. FINDINGS: There is mild degenerative arthrosis of the glenohumeral articulation. There is degenerative arthrosis of the acromioclavicular joint without inferior osseous spur formation. Normal acromion. Normal humeral head and visualized proximal humerus. The soft tissue structures are unremarkable. Normal visualized pulmonary apex. RAD/Shoulder min 2 Views IMPRESSION: Degenerative changes. Electronically Signed: Jaiden Fall MD at 8:58 EDT , Service support ,
== END 2020-12-06 09:27 | disposition home or self-care (01) ==
PROVIDERS: Emergency Provider Emergency Medicine; PCP Internal Medicine
DX: S40.012A Contusion of left shoulder, initial encounter (principal); F17.210 Nicotine dependence, cigarettes, uncomplicated; W10.9XXA Fall (on) (from) unspecified stairs and steps, initial encounter; Y93.01 Activity, walking, marching and hiking; Y92.89 Other specified places as the place of occurrence of the external cause; Y99.8 Other external cause status
CPT/HCPCS: 73030; 99282

== ENCOUNTER → 2021-01-05 | Outpatient (CLI) | payer OTHER, SELFPAY | END | disposition home or self-care (01) | LOC: LABSPEC 10:53 | PROVIDERS: PCP Internal Medicine; Visit Provider Physician Assistant | DX: Z11.52 Encounter for screening for COVID-19 (principal) | CPT/HCPCS: 87635; U0005; U0003 ==

== ENCOUNTER 2021-01-16 22:39 | Emergency (ER) | payer OTHER, SELFPAY ==
[2021-01-16 22:40] VITALS: BP 176/111; PULSE 74; RESP 18; TEMP 36.4; O2SAT 100; BMI 34.0
--- NOTE | 2021-01-16 22:45 | ED.RN ---
PT WAS VERBALLY ABUSIVE AND WANTED TO SPEAK TO THE PIPE BENDER..FLOWER MADE AWARE AND HE REFUSED TO COME DOWN.PT THREATENED TO GO TO [facility]. INFORMED THE PT THAT HE IS PERMITTED TO GO WHERE [place] HE WANTS.PT MADE AWARE THAT THE PIPE BENDER WAS BUSY AND WOULD NOT BE COMING DOWN,BUT CAN TALK TO THE CHARGE NURE.CHANTE GUEVARA MADE AWARE OF PT'S VERBAL ABUSIVE MANNER,TRYING TO GET HIS HISTORY. CHARGE NURSE CAME TO SEE PT AND HE LEFT.
== END 2021-01-16 22:53 | disposition left against medical advice (07) ==
LOC: ED 22:52
PROVIDERS: PCP Internal Medicine
DX: R10.10 Upper abdominal pain, unspecified (principal)

== ENCOUNTER → 2021-01-19 10:37 | Outpatient (CLI) | payer OTHER, SELFPAY ==
--- NOTE | 2021-01-19 | GALL_PTH ---
PATIENT: ECTOR TRAORE LOC: [facility] U#:[id number] AGE/SX: 60/M ROOM: RE01/19/[address]: Dr. Reynold Wright DO : 1965 BED: DIS: SPEC #: [id number] RECD: 01/20/21 10:30 STATUS: LINDSEY ALASYanni #: [id number] TRACI: 01/19/21 00:[address]: Reynold Wright DEPT: SURGICAL PATHOLOGY RECD BY: Jon Donald ENTERED: 01/20/21 10:30 SP TYPE: MARIA ELENA ANTOINE DR: MD Kurt Patel, MATH INSTRUCTOR-C Tissues: Gallbladder, NOS Procedures: Surgery Specimen Level III HEADER OPERATION: Laparoscopic cholecystectomy with IOC PRE-OP DIAGNOSIS: Acute cholecystitis TISSUE SUBMITTED: Gallbladder MICROSCOPIC DIAGNOSIS Gallbladder, cholecystectomy: Acute and chronic cholecystitis with denudation of mucosa and cholelithiasis. AM:kusum 01/23/2021 MICROSCOPIC DESCRIPTION Slides are reviewed. GROSS DESCRIPTION Received is one container labeled with the patient's name and designated gallbladder. The specimen consists of a gallbladder in two pieces. The distal portion of the gallbladder with fundus measures 9.5 cm in length and 5 cm in diameter. The proximal portion with cystic duct measures 4.5 x 4 x 3 cm. The serosal surface is congested and hemorrhagic. Present in the container is a greenish-black, ovoid stone measuring 4 x 2.5 x 2 cm. Bile is not identified. The mucosa is grayish and focally congested and hemorrhagic. The gallbladder wall measures up to 1.5 cm in thickness. Claim Investigator sections from the gallbladder and the cystic duct are submitted in two cassettes. / SJ:kusum 01/20/21 TC:2 CPT: 87457
[2021-01-19 11:17] LABS: Absolute Lymphocyte Count 1.58 X10^3/uL (0.83-4.51); Absolute Neutrophil Count 16.4 X10^3/uL (2.0-7.7); Basophil# 0.06 X10^3/uL; Basophil% 0.3 % (0-1); Eosinophil# 0.05 X10^3/uL; Eosinophils% 0.3 % (0-5); Hematocrit 44.8 % (40-54); Hemoglobin 14.6 g/dL (13.0-16.5); Lymphocyte # 1.58 X10^3/ul (0.83-4.51); Mean Corp Hgb Conc 32.6 g/dL (32-36); Mean Corpuscular Hgb 32.1 pg (27.0-32.0); Mean Corpuscular Volume 98.5 fL (80-94); Mean Platelet Vol. 9.2 fl (6.2-12.0); Monocyte# 1.56 X10^3/uL; Monocyte% 7.9 % (0-10); NRBC Flagged by Analyzer 0 % (0-5); Neutrophil # 16.37 X10^3/uL (2.7-7.7); POSITIVE DIFFERENTIAL YES; Platelet Count 290 K/mm3 (150-450); RBC Distribution Width CV 13.2 % (11.6-14.6); RBC Distribution Width SD 47.5 fl (35.1-43.9); Red Blood Count 4.55 M/mm3 (4.6-6.2); White Blood Count 19.7 K/mm3 (4.4-11.0)
[2021-01-19 11:26] LABS: International Normalized Ratio 1.2; Prothrombin Time (Protime)PT. 14.4 SECONDS (11.7-14.9)
[2021-01-19 11:28] LABS: Differential Indicated SCAN CRITERIA MET
[2021-01-19 11:55] LABS: Lactic Acid 1.7 mmol/L (0.4-1.9)
[2021-01-19 12:01] LABS: Differential Comment SCANNED; Erythrocyte Sedimentation Rate 18 mm/hr (0-20)
[2021-01-19 12:21] LABS: ALB/GLOB Ratio 0.5 RATIO (0.9-2.4); AST(SGOT) 17 U/L (15-37); Alanine Aminotransfer ALT/SGPT 32 U/L (16-61); Albumin, Serum 2.8 g/dL (3.2-5.0); Alkaline Phosphatase 94 U/L (45-117); Anion Gap 7 (5-15); BUN 17 mg/dL (7-18); Calcium,Total 9.6 mg/dL (8.5-10.1); Chloride 97 mmol/L (98-107); Creatinine, Serum 1.21 mg/dL (0.70-1.30); EST Glomerular Filtration Rate 66 mL/min (>60); Est Glom Filt Rate - Afr Amer 79 mL/min (>60); Globulin 5.3 g/dL (2.2-4.2); Glucose 120 mg/dL (74-106); Potassium 4.4 mmol/L (3.5-5.1); Protein, Total 8.1 g/dL (6.4-8.2); Sodium Level 133 mmol/L (136-145)
[2021-01-19] MEDS: Lactated Ringers 1,000 ML 100 ML IV ×2 (15:55→18:29)
--- NOTE | 2021-01-19 16:00 | RAD_ITS ---
HISTORY: MAYRA, ETC. EXAMINATION/TECHNIQUE: Intraoperative FL Cholangiogram and/or Pancreatography OR: Single series submitted with 66 images. Total Fluoroscopic Time: 11.9 seconds AND # of Fluoroscopic Images: 66 OR Radiation dosage index: 10.42 mGy COMPARISON: Gallbladder ultrasound on January 19, 2021 FINDINGS: Intraoperative cholangiogram catheter projects at the remnant cystic duct. No filling defects are identified in the cystic duct, common bile duct, or imaged intrahepatic ducts. Bile ducts are prominent in caliber with tapering to the ampulla. There is free flow of contrast into the duodenum. RAD/Cholangiogram/ O R,Initial IMPRESSION: Fluoroscopic support for intraoperative cholangiogram. Please refer to intraoperative report for real-time findings.. at [id number] Reported and signed by: Randolph Palacios MD Electronically Signed: Randolph Palacios MD at 1:55 EDT Tel , Service support ,
[2021-01-19 18:16] VITALS: BP 136/85; BP 170/101; PULSE 97; RESP 16; TEMP 36.4; O2SAT 97
[2021-01-19 18:30] VITALS: BP 136/85; BP 147/95; PULSE 94; RESP 18; O2SAT 94
[2021-01-19 18:45] VITALS: BP 136/85; BP 146/90; PULSE 91; RESP 18; O2SAT 98
[2021-01-19 19:00] VITALS: BP 136/85; BP 138/87; PULSE 85; RESP 18; TEMP 36.2; O2SAT 96
[2021-01-20 13:32] LABS: Pathologist Review Reviewed
== END ==
PROVIDERS: Surgery; PCP Internal Medicine; Referring Provider Internal Medicine Gastroenterology; Visit Provider Internal Medicine Gastroenterology
PROC: (CPT 47610; principal; 2021-01-19 15:40)
DX: K80.20 Calculus of gallbladder without cholecystitis without obstruction (principal)
CPT/HCPCS: 36415; 74300; 76000; 80053; 83605; 85025; 85610; 85652; 86140; 88304

== ENCOUNTER 2021-01-19 13:11 | Observation (INO) | payer OTHER, SELFPAY ==
[2021-01-19] VITALS (7 sets, daily range): BP systolic 110–140; BP diastolic 68–89; PULSE 69–102; RESP 16–19; TEMP 36.4–36.9; O2SAT 92–98; BMI 35.6; BMI 36.4
--- NOTE | 2021-01-19 14:01 | US_ITS ---
STUDY: ABDOMINAL ULTRASOUND - RIGHT UPPER QUADRANT REASON FOR VISIT: Male, 55 years old right upper quadrant pain. TECHNIQUE: Ultrasound evaluation of the right upper quadrant was performed with real-time and static rand-scale imaging. TECHNICAL QUALITY: Limited. Examination limited due to obesity. COMPARISON: None. FINDINGS: Liver: The liver is enlarged and measures 20.7 cm. There is normal echogenicity of the liver. The bile ducts are within normal limits. There is hepatic color flow. The direction of portal flow is hepatopetal. There is no demonstrated mass lesion. Gallbladder: Normal distended gallbladder. The gallbladder wall is thickened and measures 14 mm. There is a positive sonographic Grover''s sign. There is pericholecystic fluid. Solitary gallstone in the neck of the gallbladder. This measures 4.1 cm x 2.4 cm x 2.9 cm. Common Bile Duct (C.B.D.): The common bile duct is not well visualized due to overlying bowel gas. Pancreas: There is nonvisualization of the pancreas due to overlying bowel gas. Right Kidney: Normal size of the right kidney. The right kidney measures 12.7 cm x 6.3 cm x 5.8 cm. Normal renal cortex. The right cortex measures 1.2 cm. There is no demonstrated renal mass or cyst. There is no right hydronephrosis. US/Gallbladder IMPRESSION: Findings suggestive of acute cholecystitis with thickening of the gallbladder wall and pericholecystic fluid. Electronically Signed: Jaiden Fall MD at 15:41 EDT , Service support ,
--- NOTE | 2021-01-19 14:07 | ED.VIS.GI ---
HPI HPI - GI History of Present Illness Chief Complaint: Abd Pain Detail of Chief Complaint: Abdominal pain that started 2 weeks ago Informant: patient Abdominal Pain/Flank Pain Current Severity: 11/29 Narrative Narrative: Patient presents to the emergency department complaint of abdominal pain that started 2 weeks ago. Patient was seen by GI today and referred to Dr. Mark Booth who referred patient to the emergency department for concern of acute cholecystitis and concern that he would need to have surgical intervention. Patient had blood work done as an outpatient today that showed an elevated white count of 19,000. His LFTs were normal. Patient states that he really has not been wanting to eat much lately although will not say that food actually makes his pain worse. Pain is worse with movement. He has had prior abdominal surgery including a hernia repair. Patient denies any blood in stool or black tarry stool. [facility] Medical History (Updated 01/19/21 @ 16:[address] Suzie Robb, DO) Acute cholecystitis Chest pain Cholelithiasis Chronic neck and back pain Fatigue Gastritis GERD (gastroesophageal reflux disease) History of high cholesterol History of rotator cuff tear Knee pain Shoulder pain SOB (shortness of breath) Tobacco abuse Home Medications ciprofloxacin HCl 500 mg tablet 500 mg PO Q12H #20 tab 01/19/21 [Rx Last Taken 01/19/21] metronidazole 500 mg tablet 500 mg PO Q8H #30 tab 01/19/21 [Rx Last Taken 01/19/21] Allergy/AdvReac Type Severity Reaction Status Date / Time No Known Allergies Allergy Verified 01/19/21 13:15 Family History Other unknown Surgical History H/O right knee surgery History of shoulder surgery Social History Smoking Status: Current every day smoker tobacco type: cigarettes Tobacco: How many years used: 47 Electronic Cigarette Use: not used second hand exposure: Yes quit status: has quit before counseling given: provider counseling alcohol intake: never substance use type: marijuana what type of physical activity do you participate in: none ROS ROS ED Constitutional Constitutional ED: Reports systems reviewed and no addt'l complaints, except as documented; Denies body ache(s), change in weight or chills Eyes Eyes: Denies acute decrease in peripheral vision, change in vision, double vision or loss of vision ENT ENT ED: Reports none; Denies ear pain, lip swelling, loss taste/smell, neck pain, otalgia or sore throat Cardiovascular Cardiovascular: Reports none; Denies abdominal pain, chest pain with activity, leg edema, lightheadedness, palpitations, rapid heart rate or syncope Respiratory/Chest Respiratory/Chest: Reports none; Denies change in mental status, dry cough, dyspnea, hemoptysis, shortness of breath at rest or shortness of breath with exertion Gastrointestinal Gastrointestinal: Reports none, abdominal pain and nausea; Denies change in stool character, diarrhea, hematemesis, hematochezia, melena, rectal bleeding or vomiting Genitourinary Genitourinary ED: Reports none; Denies abdominal discomfort, anuria, dysuria, genital pain or polyuria Musculoskeletal Musculoskeletal: Reports none; Denies arthralgias, back pain, difficulty walking, extremity pain, muscle weakness or myalgias Integumentary Reports none; Denies abscess or rash Neurologic Neurologic: Reports none; Denies abnormal gait, confusion, focal weakness, frequent falls, headache(s), loss of vision, numbness, paresthesias, radicular pain, vertigo or weakness Psychiatric Psychiatric: Reports systems reviewed and no addt'l complaints, except as documented and none; Denies behavioral changes, confusion, difficulty concentrating, hallucinations, suicidal ideation, tactile hallucinations or visual hallucinations Endocrine Endocrinology: Denies none, cold intolerance, excessive sweating, fatigue or heat intolerance Hematologic/Lymphatic Hematologic/Lymphatic: Reports none; Denies anemia, easy bleeding or easy bruising Allergic/Immunologic Allergic/Immunologic ED: Denies as per HPI, none, lip swelling, mouth swelling, throat swelling, tongue swelling or hives EXAM Physical Exam Const Vital Signs: 01/19/21 13:12 01/19/21 14:30 01/19/21 15:37 Temperature 98.5 F 97.6 F L 97.6 F L Temperature Source Temporal Oral Oral Pulse Rate 102 H 89 89 Respiratory Rate 16 19 H 19 H Blood Pressure 110/89 H 136/85 H 136/85 H Blood Pressure Mean 96 102 102 Pulse Ox 98 96 96 Oxygen Delivery Method Room Air Room Air Room Air Positive well nourished and well developed General Appearance ED: well developed and NAD HEENT Reports TM's clear and moist mucous membranes normocephalic and atraumatic; Negative for trauma or tenderness Tympanic Membrane ED: Yes TM's clear Eyes PERRL and EOMs intact bilaterally General Eye ED: Negative for pale conjunctiva or scleral icterus Neck no lymphadenopathy, supple and no JVD General: Negative for tenderness Chest Wall inspection of chest normal and palpation of chest normal Chest: Negative for tenderness Resp normal respiratory effort and clear to auscultation bilaterally Effort and Inspection: Negative for respiratory distress or pain with movement Auscultation: Negative for rhonchi, wheezes or diminished lung sounds Cardio regular rate, regular rhythm, S1 normal heart sound, S2 normal heart sound and no murmurs Peripheral Pulses: pulses 2+ throughout GI normal to inspection, nondistended, normoactive bowel sounds, soft to palpation, non-distended and no masses GI Narrative: Patient has tenderness palpation of the right upper quadrant with guarding. He is got a positive Grover sign. Palpation: soft and tender Back/Spine no CVA tenderness and no thoracic nor lumbar tenderness Extremity normal to inspection General Extremety ED: Negative for edema General Extremity: Negative for edema Neuro oriented x3, CN's II-XII intact bilaterally, no sensory deficits noted and gait normal Sensorium / Orientation: awake, alert, oriented to person, oriented to place and oriented to time Motor Exam: strength 5/5 throughout and strength abnormal Psych mental status grossly normal Skin no rashes or lesions noted and no wounds MDM MDM MDM Narrative Medical decision making narrative: IV line established and patient medicated with Dilaudid and Zofran. Patient was seen by general surgery physician investment sales assistant and by general surgery Dr. Mark Carroll who will take patient to the operating room for diagnosis of acute cholecystitis. Patient was started on Zosyn. Lab Data Attestation: I reviewed the patient's lab results. Radiography Diagnostic Testing: Radiology Impression Gallbladder Ultrasound 01/19/21 14:01 IMPRESSION: Findings suggestive of acute cholecystitis with thickening of the gallbladder wall and pericholecystic fluid. Electronically Signed: Jaiden Fall MD at 15:41 EDT , Service support , Discharge Plan Dx/Rx/DC Orders Clinical Impression: Acute cholecystitis, Abdominal pain Disposition Disposition: Acute Care Hospital [facility] Discharge Date/Time: 01/19/21 15:38
[2021-01-19] MEDS: HYDROmorphone 1 MG/ML Syringe IV (14:31)
[2021-01-19] MEDS: 0.9% Normal Saline 1,000 ML 125 ML IV ×2 (14:32→20:38)
[2021-01-19] MEDS: Ondansetron 4 MG/2 ML Vial IV (14:32)
--- NOTE | 2021-01-19 15:20 | PCM.HP.STD ---
HPI - General HPI Narrative ECTOR TRAORE, is a 55 M who presents with a 2 day history of abdominal pain, lack of appetite and nausea. Patient stated he went to a birthday constitution party on Saturday evening where they had a taco bar. Saturday he was woken up by abdominal pain. He went to [facility] where he had a CT scan of the ab/pel which demonstrated cholecystitis with gallbladder wall thickening. Patient noted he was referred to GI, Dr. Peters. Patient was evaluated by his PCP today who was able to have him elevated by Dr. Wright in GI. Lab work was obtained after seeing Dr. Wright demonstrating a WBC of 19. Patient was very tender in the right upper quadrant. Dr. Carroll was contacted and recommend the patient be sent to the ED. Patient was also given antibiotics by Dr. Wright. He did take Cipro and Flagyl this morning with wheat bread and grilled chicken around 10 AM. He notes urination was dark in color. He denies bowel changes. He notes a previous umbilical hernia repair with mesh. Patient does note 2 weeks ago he had similar pain, was evaluated again at [facility] where they did a full cardiac work-up. He denies having COVID and has not had the COVID vaccine. Patient notes he wakes up from anesthesia very quickly. [facility] Medical History (Updated 01/19/21 @ 09:55 by Kurt Diaz NP, VEHICLE DAMAGE APPRAISER-C) Acute cholecystitis Chest pain Cholelithiasis Chronic neck and back pain Fatigue Gastritis GERD (gastroesophageal reflux disease) History of high cholesterol History of rotator cuff tear Knee pain Shoulder pain SOB (shortness of breath) Tobacco abuse Home Medications multivit,Ca,min-iron 8 mg-folic acid 200 mcg-lycopene 600 mcg tablet tab PO 01/04/21 [History Last Taken Unknown] omeprazole 20 mg capsule,delayed release 20 mg PO DAILY #90 cap 01/13/21 [Rx Last Taken Unknown] ciprofloxacin HCl 500 mg tablet 500 mg PO Q12H #20 tab 01/19/21 [Rx Last Taken Unknown] hydrocodone-acetaminophen 5-325mg 5mg-325mg 1 tab PO Q6H PRN 01/19/21 [History Last Taken Unknown] metronidazole 500 mg tablet 500 mg PO Q8H #30 tab 01/19/21 [Rx Last Taken Unknown] ondansetron HCl 4 mg tablet 4 mg PO Q8H 01/19/21 [History Last Taken Unknown] Allergy/AdvReac Type Severity Reaction Status Date / Time No Known Allergies Allergy Verified 01/19/21 13:15 Family History Other unknown Surgical History H/O right knee surgery History of shoulder surgery Social History Smoking Status: Current every day smoker tobacco type: cigarettes Tobacco: How many years used: 47 Electronic Cigarette Use: not used second hand exposure: Yes quit status: has quit before counseling given: provider counseling alcohol intake: never substance use type: marijuana what type of physical activity do you participate in: none ROS Constitutional Constitutional: Reports systems reviewed and no addt'l complaints, except as documented Eyes Eyes: Reports systems reviewed and no addt'l complaints, except as documented ENT HEENT: Reports systems reviewed and no addt'l complaints, except as documented Cardiovascular Cardiovascular: Reports systems reviewed and no addt'l complaints, except as documented Respiratory/Chest Respiratory/Chest: Reports systems reviewed and no addt'l complaints, except as documented Gastrointestinal Gastrointestinal: Reports systems reviewed and no addt'l complaints, except as documented Genitourinary Genitourinary: Reports systems reviewed and no addt'l complaints, except as documented Musculoskeletal Musculoskeletal: Reports systems reviewed and no addt'l complaints, except as documented Integumentary Integumentary: Reports systems reviewed and no addt'l complaints, except as documented Neurologic Neurologic: Reports systems reviewed and no addt'l complaints, except as documented Psychiatric Psychiatric: Reports systems reviewed and no addt'l complaints, except as documented Endocrine Endocrinology: Reports systems reviewed and no addt'l complaints, except as documented Hematologic/Lymphatic Hematologic/Lymphatic: Reports systems reviewed and no addt'l complaints, except as documented Allergic/Immunologic Allergic/Immunologic: Reports systems reviewed and no addt'l complaints, except as documented Vital Signs Vital Signs Vital Signs: 01/19/21 13:12 01/19/21 14:30 Temperature 98.5 F 97.6 F L Temperature Source Temporal Oral Pulse Rate 102 H 89 Respiratory Rate 16 19 H Blood Pressure 110/89 H 136/85 H Blood Pressure Mean 96 102 Pulse Ox 98 96 Oxygen Delivery Method Room Air Room Air Weight Weight: 277 lb 12.519 oz Body Mass Index (BMI) 35.6 Physical Exam Const alert and oriented x3 HEENT normocephalic and head/scalp atraumatic Eyes PERRL and EOMs intact bilaterally Neck full ROM Lymph Lymphatic: no lymphadenopathy noted Resp normal respiratory effort, normal air movement and clear to auscultation bilaterally Cardio regular rate and regular rhythm GI Inspection: central obesity Auscultation: hypoactive bowel sounds Palpation: soft, tender RUQ and Grover's sign and guarding no CVA tenderness Back/Spine no CVA tenderness Extremity normal to inspection Skin no rashes or lesions noted Neuro oriented x3 and CN's II-XII intact bilaterally Psych mental status grossly normal Results Lab / Micro Data Micro: Microbiology 01/19/21 14:09 Nasal Secretion SARS-CoV-2 Antigen (Rapid) - Final Assessment & Plan Assessment/Plan (1) Acute cholecystitis: PLAN: I am seeing this patient in conjunction with Dr. Carroll. He will independently evaluate this patient. I have discussed this patient with Dr. Carroll. Dr. Carroll will plan to perform a laparoscopic cholecystectomy with intraoperative cholangiogram. Procedure details, risks and benefits have been explained. Patient will need COVID tested, EKG. Due to patient eating at 10:00 AM, procedure will be scheduled for 16:00 pm today. Patient will be admitted following the procedure. Patient and his have had the opportunity to ask and have questions answered. Patient verbally understands and agrees with the plan. Gallbladder u/s is pending. Thank you for allowing us to participate in this patient's care. Charges/Coding Visit Charges Office Visits / Consults: [id number] OP Consult L3
--- NOTE | 2021-01-19 18:01 | PCM.OPRPT ---
Problems Associated Problem List Diagnoses (1) Acute cholecystitis: Report of Operation Date of Procedure: 01/19/21 Pre-Operative Diagnosis: Acute cholecystitis Post-Operative Diagnosis: Acute gangrenous cholecystitis Surgery/Procedure Performed:: Laparoscopic cholecystectomy with cholangiogram Specimen's removed: Gallbladder and contents Drains: MARK to bulb suction Description of Procedure: Patient was brought back to the operating room and general anesthesia was induced. The abdomen was prepped and draped usual sterile fashion. Superior to the prior umbilical incision an incision was made in the midline and deepened to the fascia which was elevated and incised. Port was placed into the abdomen and it was insufflated to 15 mmHg. The right upper quadrant was inspected in the gallbladder. Incredibly inflamed and encased in omentum with a gangrenous anterior wall. Under direct visualization a subxiphoid 5 mm port was placed as well as 2 right subcostal 5 mm ports. The gallbladder was elevated and aspirated. There was purulent material aspirated from the gallbladder. Dissection was carried inferiorly and anteriorly using blunt dissection. The triangle of Edgar was originally unable to be dissected free and a partial cholecystectomy was planned. Using harmonic scalpel the lower gallbladder was incised and the stone was removed from the neck of the gallbladder and it was very large. Next the superior portion of the gallbladder was removed and placed into a bag with the stone. Next elevating the anterior gallbladder wall that was left dissection was able to be carried inferiorly now that the stone was out of the gallbladder. I was able to identify a cystic duct. A small edgar was made in the cystic duct and a Ranfac catheter which was placed through the anterior abdominal wall was placed into the cystic duct and cholangiograms were performed. The cystic duct was patent as well as the common duct and there was good flow superiorly and down into the small bowel. There is no filling defect. Next the catheter was removed and 3 clips were placed across the cystic duct and it was divided. The cystic artery was then identified and 3 clips were placed in the same fashion and it was divided. The rest of the gallbladder was able to be removed easily. It was placed in a separate bag. The gallbladder fossa was irrigated and suctioned dry and hemostasis was obtained. A MARK drain was placed through the most lateral 5 mm port and into the gallbladder fossa. The port was removed and the drain was sutured to the skin using 3-0 nylon suture. It was placed to bulb suction. Next the other 5 mm ports were removed and the midline incision was elongated to get the specimens out of the abdomen. The fascia was then closed with several [id number] Vicryl sutures and the subcutaneous tissue was irrigated and suctioned dry. All the incisions were injected with local anesthetic. The skin was closed with interrupted 4-0 Monocryl sutures and Steri-Strips and bandages were applied. Patient was awoken and taken to PACU in stable condition. Patient tolerated the procedure well. Admit VTE Documentation VTE Mechan Device Prophylaxis: SCD's
[2021-01-19] MEDS: Acetaminophen 325 MG Tablet 650 MG PO (20:39)
[2021-01-20] MEDS: oxyCODONE 5 MG Tablet PO (01:51)
[2021-01-20 01:57] VITALS: BP 139/76; PULSE 85; RESP 18; TEMP 36.3; O2SAT 95
[2021-01-20] MEDS: 0.9% Normal Saline 1,000 ML 125 ML IV ×2 (03:58→11:59)
--- NOTE | 2021-01-20 05:02 | PCM.PN.SRG ---
Subjective Subjective patient reports urinating and tolerating some diet. Passing flatus. Objective Data Objective Data Vital Signs: Vital Signs Temp Pulse Resp BP Pulse Ox 97.3 F L 85 18 139/76 H 95 01/20/21 01:57 01/20/21 01:57 01/20/21 01:57 01/20/21 01:57 01/20/21 01:57 Oxygen Delivery Method Room Air Weight: 284 lb 2.813 oz Body Mass Index (BMI) 36.4 Intake & Output: Intake and Output for Last 24 Hours 01/18/21 01/19/21 01/20/21 23:59 23:59 23:59 Intake Total 1062.5 / 1062.5 966.67 / 966.67 Output Total 300 / 300 Balance 762.5 / 762.5 966.67 / 966.67 Lab / Micro Data Micro: Microbiology 01/19/21 14:09 Nasal Secretion SARS-CoV-2 Antigen (Rapid) - Final Radiography Diagnostic Testing: Radiology Impression Gallbladder Ultrasound 01/19/21 14:01 IMPRESSION: Findings suggestive of acute cholecystitis with thickening of the gallbladder wall and pericholecystic fluid. Electronically Signed: Jaiden Fall MD at 15:41 EDT , Service support , Physical Exam Const oriented x3 and no apparent distress GI soft to palpation and non-tender Assessment & Plan Assessment/Plan (1) Acute cholecystitis: PLAN: Patient is doing well for laparoscopic cholecystectomy. Drain is serosanguineous. If he is tolerating a diet and doing well this afternoon I will remove the drain as long as a stay serosanguineous and send home this afternoon. Mark Carroll MD Pager: [facility] [address] [place] [address], [address] [place] [address] Office:
--- NOTE | 2021-01-20 05:03 | DS.PCM_ITS ---
Providers Date of Admission: 01/19/21 Primary Care Physician: Dr. Josh Leach MD Reason For Visit: abd pain Diagnosis Discharge Diagnosis (1) Acute cholecystitis: Status: Acute Code(s): K81.0 - Acute cholecystitis Medications at Discharge Home Medications omeprazole 20 mg PO DAILY 01/19/21 acetaminophen [Tylenol] 650 mg PO Q4H PRN PRN #0 tab 01/20/21 oxycodone 5 - 10 mg PO Q4H PRN PRN 5 Days #30 tab 01/20/21 Hospital Course Operations cholecystecomy Summary of Care Provided Hospital Course: Patient was admitted after being seen at outside hospital. He had severe acute cholecystitis. Patient was taken to surgery and patient had laparoscopic cholecystectomy with cholangiogram and drain placement. Once tolerating diet drain was removed and patient was discharged home. Weight / BMI Weight Weight: 284 lb 2.813 oz Body Mass Index (BMI) 36.4 ABG / Lab / Microbiology Data Microbiology: Microbiology 01/19/21 14:09 Nasal Secretion SARS-CoV-2 Antigen (Rapid) - Final Radiography Diagnostic Testing: Radiology Impression Gallbladder Ultrasound 01/19/21 14:01 IMPRESSION: Findings suggestive of acute cholecystitis with thickening of the gallbladder wall and pericholecystic fluid. Electronically Signed: Jaiden Fall MD at 15:41 EDT , Service support , D/C Instructions Discharge Diet: Light diet - advance as tolerated Discharge Activity: May Not Drive (for 2-3 days or while taking narcotic pain me dications.) and - (Do not drive, work heavy equipment or sign legal documents for 24 hours.) May shower in (days): 1 Lifting Restrictions: 20 lbs for 2 weeks Additional Activity Instructions: Pain medication may cause nausea. You should typically eat light foods as you take your pain medications. Pain medication may also cause constipation. If this is a problem for you, please discuss with your doctor. Call your doctor if your incision/area has: Continuous Slow Oozing, Sudden Increased Bleeding, Increased Pain/ Swelling, Increased Redness and Foul Smelling Discharge Call your doctor if you observe: Fever of 101 or Higher Suture Line Care: Avoid Pulling/Pushing and Avoid Pinching/Bending Additional Dressing/Incision Instructions: Leave operative bandaids on for 2 days. When you remove dressing, leave Steri-Strips on until your follow-up appointment, or until the Steri-Strips fall off on their own. Please Follow Up With: Mark Carroll MD When: Please call to schedule 2 week follow up appointment. [phone] Meaningful Use Info Meaningful Use Diagnoses (Choose all that apply): None applicable Discharge Plan Admission Admit Date/Time: 01/19/21 19:24 Attending Provider: Mark Carroll Primary Care Provider: Josh Leach Discharge Orders/Prescriptions Prescriptions: New acetaminophen [Tylenol] 325 mg Tablet 650 mg PO Q4H PRN PRN (Reason: P/F) Qty: 0 RF: 0 oxycodone 5 mg Tablet 5 - 10 mg PO Q4H PRN PRN (Reason: Pain Score 4-10) 5 Days Qty: 30 RF: 0 Continued omeprazole 20 mg Tablet,Delayed Release (Dr/Ec) 20 mg PO DAILY RF: 0 Discontinued metronidazole 500 mg tablet 500 mg PO Q8H Qty: 30 RF: 0 ciprofloxacin HCl 500 mg tablet 500 mg PO Q12H Qty: 20 RF: 0 Referrals / Follow Up: Josh Leach MD [Primary Care Provider] -
[2021-01-20 05:25] VITALS: BP 125/83; PULSE 58; RESP 18; TEMP 36.3; O2SAT 96
[2021-01-20 08:50] VITALS: BP 140/90; PULSE 66; RESP 18; TEMP 36.8; O2SAT 98
[2021-01-20] MEDS: Ensure Clear 120 ML Liquid PO ×2 (10:45→14:48)
[2021-01-20] MEDS: Acetaminophen 325 MG Tablet 650 MG PO (10:48)
[2021-01-20 13:12] VITALS: BP 146/85; PULSE 74; RESP 20; TEMP 36.4; O2SAT 97
[2021-01-20 16:00] VITALS: BP 146/85; PULSE 74; RESP 20; TEMP 36.4; O2SAT 97
== END 2021-01-20 16:00 | disposition home or self-care (01) ==
LOC: ED 14:16 → SDC 15:28 → MS2 19:29
PROVIDERS: Admitting Provider Surgery; Emergency Provider Emergency Medicine; PCP Internal Medicine; Visit Provider Surgery
DX: K80.12 Calculus of gallbladder with acute and chronic cholecystitis without obstruction (principal); K21.9 Gastro-esophageal reflux disease without esophagitis; K82.A1 Gangrene of gallbladder in cholecystitis; E78.00 Pure hypercholesterolemia, unspecified; F17.210 Nicotine dependence, cigarettes, uncomplicated; Z79.899 Other long term (current) drug therapy
CPT/HCPCS: 00790; 47563; 36415; 74300; 76000; 76705; 80053; 83605; 85025; 85610; 85652; 86140; 87426; 88304; 96361; 96365; 96366; 97802; 99218; 99251; 99284; J7030; J7050; J7120; A4216; G0378; G0463; J2405

== ENCOUNTER 2022-06-27 09:07 | Emergency (ER) | payer OTHER, SELFPAY ==
[2022-06-27 09:07] VITALS: BP 142/100; PULSE 94; RESP 18; TEMP 36.7; O2SAT 100; BMI 35.2
[2022-06-27] MEDS: Loperamide 2 MG Capsule 4 MG PO (09:30)
[2022-06-27 09:32] VITALS: BP 167/109; PULSE 80; RESP 18; TEMP 36.8; O2SAT 100
[2022-06-27 09:38] LABS: Absolute Lymphocyte Count 0.99 X10^3/uL (0.83-4.51); Absolute Neutrophil Count 2.4 X10^3/uL (2.0-7.7); Basophil# 0.02 X10^3/uL; Basophil% 0.5 % (0-1); Hematocrit 47.9 % (40-54); Hemoglobin 16.1 g/dL (13.0-16.5); Lymphocyte # 0.99 X10^3/ul (0.83-4.51); Lymphocyte % 22.7 % (19-41); Mean Corp Hgb Conc 33.6 g/dL (32-36); Mean Corpuscular Hgb 32.4 pg (27.0-32.0); Mean Corpuscular Volume 96.4 fL (80-94); Mean Platelet Vol. 8.7 fl (6.2-12.0); Monocyte# 0.92 X10^3/uL; Monocyte% 21.1 % (0-10); NRBC Flagged by Analyzer 0 % (0-5); Neutrophil # 2.43 X10^3/uL (2.7-7.7); Neutrophil % 55.5 % (47-70); Platelet Count 196 K/mm3 (150-450); RBC Distribution Width CV 13.2 % (11.6-14.6); Red Blood Count 4.97 M/mm3 (4.6-6.2); White Blood Count 4.4 K/mm3 (4.4-11.0)
[2022-06-27] MEDS: 0.9% Normal Saline 1,000 ML 1000 ML IV (09:40)
[2022-06-27 09:52] LABS: Anion Gap 10 (5-15); BUN 14 mg/dL (7-18); BUN/Creat Ratio 13.3 RATIO (10-20); Calcium,Total 9.3 mg/dL (8.5-10.1); Chloride 101 mmol/L (98-107); Creatinine, Serum 1.05 mg/dL (0.70-1.30); EST Glomerular Filtration Rate 77 mL/min (>60); Est Glom Filt Rate - Afr Amer 93 mL/min (>60); Estimated Creatinine Clearance 88.07 ml/min; Glucose 110 mg/dL (74-106); Potassium 3.6 mmol/L (3.5-5.1); Sodium Level 133 mmol/L (136-145)
--- NOTE | 2022-06-27 10:14 | EX.ED.DYSGE1 ---
HPI History of Present Illness Chief Complaint: Abd Pain Detail of Chief Complaint: Abdominal pain, not feeling well and diarrhea Informant: patient and spouse/S.O. Onset/Context/Timing Onset: Days (Onset June 25) Context: Sudden Onset Timing: Continuous and Waxes and wanes Quality: Discomfort Location: Generalized Current Severity: Mild Maximum Severity: Moderate Worsened by: Nothing specific Relieved by: Nothing Associated Symptoms Associated Symptoms: Nausea, diarrhea Narrative Narrative: Patient is a 57-year-old male with history of GERD, status post cholecystectomy who presents with a feeling of unwellness. Onset occurred while at work on Saturday. He had to go home. He has had diffuse vague abdominal pain with nausea and diarrhea. He estimates on average 4-5 loose stools per day. Is not noted any blood or mucus. He is on a PPI. He has not been on any antibiotic in the past month. He denies history of pseudomembranous enterocolitis. He did have a colonoscopy a couple of years ago by Dr. Enriquez which was unremarkable. Dr. Ponce brother performed his cholecystectomy approximately 2 years ago. He denies headache, visual, ocular auditory symptoms. He denies upper respiratory infectious symptoms. He does endorse thirst and dry mouth. He denies orthostatic symptoms. He does not believe he had a decrease in urine output. He denies paresthesia, anesthesia or motor weakness. He denies back pain. He denies cardiac or respiratory symptoms. Prior similar symptoms: No Recent Illness/Hospitalization: No [facility] [place] Medical History Acute cholecystitis Acute cholecystitis Chest pain Cholelithiasis Chronic neck and back pain Fatigue Gastritis GERD (gastroesophageal reflux disease) History of high cholesterol History of rotator cuff tear Knee pain Pain with bowel movements Shoulder pain SOB (shortness of breath) Tobacco abuse Home Medications acetaminophen 325 mg tablet (Tylenol) 650 mg PO Q4H PRN PRN P/F #0 tabs 01/20/21 [Rx Last Taken Unknown] omeprazole 20 mg tablet,delayed release 20 mg PO DAILY #90 tabs 08/14/21 [Rx Last Taken Unknown] omeprazole 40 mg capsule,delayed release 40 mg PO DAILY 04/19/22 [History Last Taken Unknown] meloxicam 15 mg tablet 15 mg PO DAILY #30 tabs 05/25/22 [Rx Last Taken Unknown] ondansetron 4 mg disintegrating tablet 4 mg PO Q8H PRN PRN Nausea #10 tabs 06/27/22 [Rx Last Taken Unknown] Allergy/AdvReac Type Severity Reaction Status Date / Time No Known Allergies Allergy Verified 06/27/22 09:10 Family History Other unknown Surgical History H/O right knee surgery History of shoulder surgery S/P laparoscopic cholecystectomy Social History (Updated 06/27/22 @ 10:[address] Alvaro Easley MD) household members: spouse Smoking Status: Light Smoker (<10/day) Tobacco: How many years used: 47 Electronic Cigarette Use: not used second hand exposure: Yes quit status: has quit before counseling given: provider counseling alcohol intake: never substance use type: marijuana what type of physical activity do you participate in: none ROS ROS ED Constitutional Constitutional ED: Denies chills, fever(s), subjective, sweats or weight loss Eyes Eyes: Denies blurry vision, change in vision or diplopia ENT ENT ED: Denies ear pain, rhinorrhea or sore throat Cardiovascular Cardiovascular: Denies chest pain, orthopnea, palpitations, paroxysmal nocturnal dyspnea or racing heartbeat Respiratory/Chest Respiratory/Chest: Denies cough, dyspnea, dyspnea on exertion, orthopnea or paroxysmal nocturnal dyspnea Gastrointestinal Gastrointestinal: Reports abdominal pain, diarrhea and nausea; Denies constipation or melena Genitourinary Genitourinary ED: Denies dysuria, hematuria or urinary frequency Musculoskeletal Musculoskeletal: Denies arthralgias, back pain, myalgias or neck pain Integumentary Denies Abrasions or rash Neurologic Neurologic: Reports weakness; Denies headache(s) or paresthesias Psychiatric Psychiatric: Denies anxiety Endocrine Endocrinology: Denies cold intolerance or heat intolerance Hematologic/Lymphatic Hematologic/Lymphatic: Reports systems reviewed and no addt'l complaints, except as documented EXAM Physical Exam Const Vital Signs: 06/27/22 09:07 06/27/22 09:32 06/27/22 10:47 Temperature 98.1 F 98.3 F 98.3 F Temperature Source Temporal Oral Oral Pulse Rate 94 80 83 Respiratory Rate 18 18 18 Blood Pressure 142/100 H 167/109 H 160/101 H Blood Pressure Mean 114 128 120 Pulse Ox 100 100 100 Oxygen Delivery Method Room Air Room Air Positive well nourished, well developed, obese and unkempt Constitutional Narrative: Patient does not appear well. General Appearance ED: unkempt, well developed and pallor; Negative for cyanotic, diaphoretic or NAD Nutritional Appearance: obese HEENT Reports dry mucous membranes HEENT Narrative: Head is atraumatic normocephalic. Ears normal. Nares patent. Uvula is midline. Posterior pharynx is unremarkable. Mouth ED: Yes dry mucous membranes Mouth: dry mucous membranes Eyes PERRL and EOMs intact bilaterally General Eye ED: Negative for pale conjunctiva or scleral icterus Neck no lymphadenopathy, supple and no JVD Chest Wall inspection of chest normal and palpation of chest normal Resp normal respiratory effort and clear to auscultation bilaterally Cardio regular rate, regular rhythm, S1 normal heart sound, S2 normal heart sound and no murmurs GI non-tender, non-distended and no masses; Negative for hepatosplenomegaly GI Narrative: Well-healed surgical scar noted. Auscultation: hypoactive bowel sounds Palpation: soft and tender McBurney's point, periumbilical, Grover's sign, Obturator sign, Psoas sign, Rovsing's sign and other (Scattered tenderness throughout); Negative for guarding, mass or rebound tenderness present Back/Spine no CVA tenderness Extremity normal to inspection General Extremety ED: Negative for edema or tenderness General Extremity: Negative for edema Neuro oriented x3, CN's II-XII intact bilaterally and no sensory deficits noted Sensorium / Orientation: alert Motor Exam: strength 5/5 throughout Psych mental status grossly normal Appearance: unkempt Attitude: No agitated Mood & Affect: Negative for anxious or tearful Skin no rashes or lesions noted, no wounds and skin turgor normal General Skin Exam: pallor; Negative for elasticity normal or jaundice MDM MDM MDM Narrative Medical decision making narrative: Patient presents with viral-like symptoms. He does have evidence of conjunctivitis he denied matting of his eyelashes or drainage. Patient's predominant symptom is diarrhea and weakness. He clinically appears mildly dehydrated. Review of prior records indicates that his colonoscopy was unremarkable and the cholecystectomy was uneventful. Both procedures performed by Dr. Maximino Carroll. Will treat his diarrhea with Imodium. We will treat his nausea with Zofran. CBC was obtained assess white count differential. Basic metabolic panel was obtained to assess renal function, CO2 anion gap and evaluate for hypokalemia. Patient's only risk factor for similar center colitis is use of PPI. Lab Data Attestation: I reviewed the patient's lab results. Lab results narrative: CBC is unremarkable. There is no white count or shift. Basic metabolic panel reveals mild hyponatremia. Renal function is normal and there is no evidence of hypokalemia Labs: Laboratory Results - last 24 hr 06/27/22 06/27/22 09:30 09:30 WBC 4.4 RBC 4.97 Hgb 16.1 Hct 47.9 MCV 96.4 H MCH 32.4 H MCHC 33.6 RDW Std Deviation 47.0 H RDW Coeff of Francois 13.2 Plt Count 196 MPV 8.7 Immature Gran % (Auto) 0.200 Neut % (Auto) 55.5 Lymph % (Auto) 22.7 [place] % (Auto) 21.1 H Eos % (Auto) 0.0 Baso % (Auto) 0.5 Absolute Neuts (auto) 2.4 Absolute Lymphs (auto) 0.99 Nucleated RBC % 0 Sodium 133 L Potassium 3.6 Chloride 101 Carbon Dioxide 22.0 Anion Gap 10 BUN 14 Creatinine 1.05 Estim Creat Clear Calc 88.07 Est GFR (MDRD) Af Amer 93 Est GFR (MDRD) Non-Af 77 BUN/Creatinine Ratio 13.3 Glucose 110 H Calcium 9.3 Treatment and Re-Evaluation :: Patient was reassessed at 1215. Patient looks better. He reports feeling better. Plan is to discharge to home with prescription for Zofran for his nausea. Discharge Plan Triage Chief Complaint: Abd Pain ED Provider: Alvaro Easley Dx/Rx/DC Orders Clinical Impression: Abdominal pain, acute, generalized, Nausea alone, Diarrhea, Acute dehydration, Systemic viral illness Instructions: ED Viral Syndrome (Adult) Prescriptions: New ondansetron [ondansetron] 4 mg tablet,disintegrating 4 mg PO Q8H PRN PRN (Reason: Nausea) Qty: 10 0RF No Action omeprazole 40 mg capsule,delayed release(DR/EC) 40 mg PO DAILY acetaminophen [Tylenol] 325 mg Tablet 650 mg PO Q4H PRN PRN (Reason: P/F) Qty: 0 0RF omeprazole 20 mg tablet,delayed release (DR/EC) 20 mg PO DAILY Qty: 90 1RF meloxicam 15 mg tablet 15 mg PO DAILY Qty: 30 0RF Stand Alone Forms: ED Work / School Excuse Primary Care Provider: Josh Leach Referrals: Josh Leach MD [Primary Care Provider] - 3-5 Days if not improving Disposition Disposition: Home, Self Care
[2022-06-27 10:47] VITALS: BP 160/101; PULSE 83; RESP 18; TEMP 36.8; O2SAT 100
[2022-06-27 12:27] VITALS: BP 160/98; PULSE 82; RESP 18; TEMP 36.8; O2SAT 100
== END 2022-06-27 12:29 | disposition home or self-care (01) ==
PROVIDERS: Emergency Provider Emergency Medicine; PCP Internal Medicine; Visit Provider Emergency Medicine
DX: R10.9 Unspecified abdominal pain (principal); E86.0 Dehydration; R19.7 Diarrhea, unspecified; R11.0 Nausea; E78.00 Pure hypercholesterolemia, unspecified; B34.9 Viral infection, unspecified; E66.9 Obesity, unspecified; F17.200 Nicotine dependence, unspecified, uncomplicated; H10.9 Unspecified conjunctivitis; Z90.49 Acquired absence of other specified parts of digestive tract
CPT/HCPCS: 80048; 85025; 96360; 99284; J7030; A4216

== ENCOUNTER → 2022-09-06 | Outpatient (CLI) | payer OTHER, SELFPAY ==
[2022-09-06 16:33] LABS: Cholesterol 224 mg/dL (200); High Density Lipoprotein 43 mg/dL; Triglycerides 249 mg/dL; Very Low Density Lipoprotein 50 mg/dL (5-40)
== END | disposition home or self-care (01) ==
LOC: BIMLAB 14:21
PROVIDERS: PCP Internal Medicine; Referring Provider Nurse Practitioner Family; Visit Provider Nurse Practitioner Family
DX: Z00.00 Encounter for general adult medical examination without abnormal findings (principal); Z12.5 Encounter for screening for malignant neoplasm of prostate
CPT/HCPCS: 36415; 80061; 84153; G0103